=== PATIENT | female | born 1945 | race Caucasian/White ===

== ENCOUNTER → 2016-08-09 | Outpatient (CLI) | payer MEDICARE ==
[2016-08-09 14:02] LABS: EKG EKG PERFORMED
[2016-08-09 14:28] LABS: INR 1.1 (<1.1); Partial Thromboplastin Time 25.6 sec (22.0-30.0); Prothrombin Time 11.2 sec (9.0-12.0)
[2016-08-09 14:30] LABS: Basophils % (A) 1 %; CH 31.9; CHCM 32.9; Eosinophils # (A) 0.1 k/uL (0-0.7); Eosinophils % (A) 1 %; HCT 45.2 % (34.0-46.0); HDW 2.57; HGB 14.8 gm/dL (11.4-16.0); Luc # (Auto) 0.11; Luc % (Auto) 3; Lymphocytes # (A) 1.3 k/uL (1.0-4.8); Lymphocytes % (A) 31 %; MCH 31.8 pg (25.0-35.0); MCHC 32.7 g/dL (31.0-37.0); MCV 97.4 fL (80.0-100.0); Mean Platelet Volume 8.3; Monocytes # (A) 0.3 k/uL (0-1.0); Monocytes % (A) 6 %; Neutrophils # (A) 2.4 k/uL (1.3-7.7); Neutrophils % (A) 58 %; RBC 4.64 m/uL (3.80-5.40); RDW 12.4 % (11.5-15.5); WBC 4.1 k/uL (3.8-10.6); WBC (Perox) 4.11
[2016-08-09 14:43] LABS: Anion Gap 12 mmol/L; Carbon Dioxide 27 mmol/L (22-30); Chloride 103 mmol/L (98-107); Potassium 4.6 mmol/L (3.5-5.1); Sodium 142 mmol/L (137-145)
== END ==
LOC: LABPAT 13:51
PROVIDERS: ATTEND Orthopaedic Surgery
DX: Z01.810 Encounter for preprocedural cardiovascular examination (principal); Z01.812 Encounter for preprocedural laboratory examination; M17.12 Unilateral primary osteoarthritis, left knee; Z51.81 Encounter for therapeutic drug level monitoring; Z79.01 Long term (current) use of anticoagulants
CPT/HCPCS: 36415; 80051; 85025; 85610; 85730; 87070; 93005

== ENCOUNTER 2016-08-21 08:02 | Inpatient (IN) | payer MEDICARE ==
[2016-08-14 11:32] VITALS: BMI 42.4
--- NOTE | 2016-08-20 17:09 | HP ---
DATE OF ADMISSION: Dolores is a 71-year-old patient seen with symptomatic left knee osteoarthritis. After having treatment options discussed, she elected to proceed with left total knee arthroplasty. Consent was obtained. Medical clearance was provided by Dr. Harris. Past medical history is cardiovascular disease, osteoarthritis. Past surgical history is lumbar laminectomy, hysterectomy, foot surgery. Daily medications: 1. Mobic. 2. Pollock. 3. Requip. ALLERGIES: None reported. SOCIAL HISTORY: Patient denies tobacco use. Physical evaluation of the left knee: Range of motion is -6 to 90 degrees. There is a mild intra-articular effusion. Tenderness along the medial and lateral joint lines. Positive medial Beth's. There is crepitus of the patellofemoral joint, range of motion as well as medial and lateral joint line. Crepitus with range of motion, positive patellofemoral compression sign. Ligaments stable. Hip rotation without pain. Distal neurovascular exam is intact. Left knee radiographs reveal severe tricompartmental osteoarthritis. IMPRESSION: Left knee osteoarthritis. PLAN: Left total knee arthroplasty.
[~2016-08-21 08:02] MED LIST: ACETAMINOPHEN TAB 500 MG TAB PO ONE; DEXAMETHASONE SOD PHOSPHATE 10 MG/ML 1 ML VIAL IV ONE; HYDROmorphone 1 MG/ML 1 ML SYRINGE IVP PRN; MELOXICAM 7.5 MG TAB PO ONE; MIDAZOLAM 2 MG/2 ML VIAL IV PRN; ONDANSETRON 4 MG/2 ML VIAL IVP ONE; TRANEXAMIC ACID 1,000 MG in SODIUM CHLORIDE 0.9% 100 ML IVPB ONE; ceFAZolin 2 GM in SODIUM CHLORIDE 0.9% 100 ML IVPB ONE
[2016-08-21] MEDS: LACTATED RINGERS 1,000 ML IV SCH (11:50)
[2016-08-21] MEDS ORDERED: SODIUM CHLORIDE 0.9% 100 ML BAG ONE (13:10)
[2016-08-21] MEDS ORDERED: TRANEXAMIC ACID 1,000 MG/10 ML VIAL ONE (13:10)
[2016-08-21] MEDS ORDERED: LIDOCAINE 1% INJ 10MG/ML (20 ML MDV) ONE (13:10)
[2016-08-21] MEDS ORDERED: MIDAZOLAM 2 MG/2 ML VIAL ONE (13:10)
[2016-08-21] MEDS ORDERED: fentaNYL (PF) 50 MCG/ML 2 ML AMP ONE (13:10)
[2016-08-21] MEDS ORDERED: PROPOFOL 10 MG/ML 20 ML VIAL IV ONE ×2 (13:10)
[2016-08-21] MEDS ORDERED: ceFAZolin 3,000 MG in SODIUM CHLORIDE 0.9% IRRIGATIO 3,000 ML IRRIGATION ONE (13:25)
[2016-08-21] MEDS: ROPIVACAINE 246.25 MG, EPINEPHrine 0.5 MG, KETOROLAC 30 MG, cloNIDine HCL/PF 80 MCG, WA... MISCELLANE ONE ×10 (13:55→14:55)
[2016-08-21] MEDS ORDERED: LACTATED RINGERS 1,000 ML IV ONE (15:40)
[2016-08-21] MEDS ORDERED: NALOXONE 0.4 MG/ML 1 ML VIAL IV PRN (15:45)
[2016-08-21] MEDS ORDERED: HYDROmorphone 1 MG/ML 1 ML SYRINGE IVP PRN ×3 (15:45)
[2016-08-21] MEDS ORDERED: ONDANSETRON 4 MG/2 ML VIAL IVP PRN (15:45)
[2016-08-21] MEDS ORDERED: HYDROcodone/APAP 7.5-325MG 1 EACH TAB PO PRN (15:45)
--- NOTE | 2016-08-21 15:45 | P.OP ---
Date of Procedure: 08/21/16 Preoperative Diagnosis: Left knee osteoarthritis Postoperative Diagnosis: Left knee osteoarthritis Procedure(s) Performed: Left total knee arthroplasty Implants: 1. Michaela persona size 8 left narrow cemented cruciate retaining femoral component 2. Michaela persona size E left cemented tibial tray 3. Michaela persona 10 mm medial congruent polyethylene tibial insert 4. Michaela persona 32 mm all polyethylene cemented patella Anesthesia: regional (Adductor canal block), local, spinal Surgeon: Ricardo Ivy Survey Field Technician #1: Hipolito Babcock Estimated Blood Loss (ml): 50 Pathology: other (Bone) Condition: stable Disposition: PACU Indications for Procedure: 71-year-old patient seen with symptomatic left knee osteoarthritis. After having treatment options discussed, she elected to proceed with left total knee arthroplasty. Operative Findings: See description of procedure Description of Procedure: Patient was taken to the operative suite after having undergone an adductor canal block by the department of anesthesia. Patient underwent a spinal anesthetic by the department of anesthesia. Patient was given preoperative IV intake antibiotics and TXA. A well-padded tourniquet was placed about the [] lower extremity. The lower extremity was then prepped and draped in the normal sterile orthopedic fashion. A standard anterior incision was made sharply through skin. Dissection was taken down through the subcutaneous soft tissues down to the extensor mechanism. A medial arthrotomy was performed, patella was everted and knee was flexed. Hemostasis was achieved via electrocautery. There was advanced osteoarthritis noted. A proximal tibial cutting guide was positioned. Proximal tibial cut was made. A distal intramedullary femoral cutting guide was positioned, distal femoral cut made. We had some bleeding from the bone at this point insufflated the tourniquet to 350. We placed the appropriate sizing guide and selected the appropriate size. A distal 4-in-1 femoral cutting block was positioned, distal femoral cuts were made. We now placed a trial femoral component into position, along with an appropriate size tibial tray and insert. We now took the knee through range of motion and had full extension good flexion and good overall soft tissue balance noted. The patella was everted and a flush cut made with patellar quad tendon. We templated the patella, appropriate drill holes were made. An appropriate trial patella was positioned, knee was taken through full range of motion with the patella tracking very nicely. The trial patella was removed. Drill holes were made through the femoral component. All trial components were removed after marking off the appropriate rotation of the tibia. Retractors were now positioned along the proximal tibia. We did note that the lateral tibial plateau was somewhat osteoporotic but I did feel that it could support the tibial component. An appropriate keel punch was made with the appropriate size tibial guide. At this point appropriate size implants were chosen and opened. The joint was irrigated copiously with pulse lavage mechanical irrigation. The deep soft tissues were infiltrated local analgesic. We mixed antibiotic methylmethacrylate. Once the methyl methacrylate was ready, the tibial component was cemented into place removing any excess methylmethacrylate. The femoral component was cemented into place removing the removing any excess methylmethacrylate. We then inserted the appropriate size polyethylene tibial insert. We made sure that it was locked into position. We took the knee into full extension, and then back in a flexion making sure we had removed any excess methylmethacrylate. The patellar component was then cemented down and secured with clamp. Excess methylmethacrylate removed. We kept the knee in full extension, patellar clamp in position until methylmethacrylate had hardened. The superficial soft tissues were infiltrated local analgesia. Once it had hardened the patellar clamp was removed. The knee was taken through full range of motion. The patella tracked nicely. There was good soft tissue balancing. The tourniquet was now released. Additional hemostasis was achieved via electrocautery. A second gram of TXA was given. Wound was irrigated with pulse lavage mechanical irrigation. The extensor mechanism was repaired with Vicryl. We checked the repair with range of motion and it was stable. The subcutaneous soft tissues were repaired with Vicryl in layers. The skin was approximated with pernio/Dermabond. Sterile dressings were applied followed by loose web roll and Jitendra bandage. The patient was transferred to a bed, and taken to recovery in stable and satisfactory condition. Juarez LEON assisted with the procedure.
[2016-08-21] MEDS ORDERED: ROPIVACAINE 1,100 MG, SODIUM CHLORIDE 0.9% 330 ML MISCELLANE PRN ×2 (16:08)
--- NOTE | 2016-08-21 16:35 | XR ---
EXAMINATION TYPE: XR knee limited LT DATE OF EXAM: 08/21/2016 4:26 PM COMPARISON: NONE HISTORY: Knee replacement TECHNIQUE: 2 view left knee FINDINGS: Tibial and femoral components of in place. A medial femoral condylar fracture is not exclu ded no additional areas suspicious for fracture is evident. Postsurgical changes are present which cr eates artifact which may simulate a fracture. IMPRESSION: 1. Medial femoral condylar fracture is not excluded. This potentially could be artifact from postsur gical change. 2. Placement of the tibial femoral components for knee prosthesis.
[2016-08-21] MEDS: HYDROcodone/APAP 7.5-325MG 1 EACH TAB PO PRN (17:13)
[2016-08-21] MEDS: traMADol 50 MG TAB PO SCH (20:13)
[2016-08-21] MEDS: SENNOSIDES-DOCUSATE SODIUM 1 EACH TAB PO SCH (20:15)
[2016-08-21] MEDS: ENOXAPARIN 30 MG/0.3 ML SYRINGE SQ SCH (20:15)
[2016-08-21] MEDS: ceFAZolin 2 GM in SODIUM CHLORIDE 0.9% 100 ML IVPB SCH (20:39)
[2016-08-22] MEDS: HYDROcodone/APAP 7.5-325MG 1 EACH TAB PO PRN ×4 (00:22→23:06)
[2016-08-22] MEDS: traMADol 50 MG TAB PO SCH ×5 (00:57→21:51)
[2016-08-22] MEDS: ceFAZolin 2 GM in SODIUM CHLORIDE 0.9% 100 ML IVPB SCH (05:35)
[2016-08-22] MEDS: LACTATED RINGERS 1,000 ML IV SCH ×4 (07:05→21:38)
[2016-08-22] MEDS: ENOXAPARIN 30 MG/0.3 ML SYRINGE SQ SCH ×2 (07:36→21:51)
[2016-08-22] MEDS: MELOXICAM 7.5 MG TAB PO SCH (07:36)
[2016-08-22] MEDS: FAMOTIDINE 20 MG TAB PO SCH (07:36)
[2016-08-22 08:19] LABS: Basophils % (A) 0 %; CH 31.6; CHCM 32.8; Eosinophils % (A) 0 %; HCT 34.9 % (34.0-46.0); HDW 2.63; HGB 11.9 gm/dL (11.4-16.0); Luc % (Auto) 1; Lymphocytes # (A) 0.8 k/uL (1.0-4.8); Lymphocytes % (A) 9 %; MCH 32.9 pg (25.0-35.0); MCV 96.8 fL (80.0-100.0); Mean Platelet Volume 8.5; Monocytes # (A) 0.3 k/uL (0-1.0); Monocytes % (A) 4 %; Neutrophils # (A) 7.8 k/uL (1.3-7.7); Neutrophils % (A) 87 %; RBC 3.61 m/uL (3.80-5.40); RDW 12.4 % (11.5-15.5); WBC (Perox) 9.61
[2016-08-22] MEDS: hydrOXYzine PAMOATE 25 MG CAP PO PRN ×2 (09:09→15:01)
--- NOTE | 2016-08-22 10:05 | CONS ---
DATE OF CONSULTATION: 08/21/2016 REASON FOR CONSULTATION: Medical management requested by Dr. Ivy. CONSULTATION: This is a pleasant 71-year-old patient of Dr. Harris who has undergone a left total knee arthroplasty. Postprocedure patient is lying in bed not in distress. No nausea or vomiting, tolerated supper. Pain is controlled. The patient's chronic stable medical conditions include mitral valve prolapse, osteoarthritis including the hands and the lower back, restless leg syndrome, chronic constipation. Denies any cardiac history. REVIEW OF SYSTEMS: CONSTITUTIONAL: None. HEENT: None. RESPIRATORY: None. CARDIOVASCULAR: None. GASTROINTESTINAL: Chronic constipation. GENITOURINARY: Urinary stress incontinence. DERMATOLOGICAL: None. HEMATOLOGICAL: None. LYMPHATIC: None. PSYCHIATRY: None. NEUROLOGICAL: Restless leg syndrome. PAST MEDICAL HISTORY: Mitral prolapse, osteoarthritis, restless leg syndrome, urinary stress incontinence, constipation. PAST SURGICAL HISTORY: Back surgery, hysterectomy, lower back fusion, ( ) surgery. SOCIAL HISTORY: Patient is a , lives by herself, does not smoke or drink alcohol. FAMILY HISTORY: Reviewed. Noncontributory to presentation. HOME MEDICATIONS: 1. Women's multivitamin 1 tablet p.o. daily. 2. Fiber Gummies 2 capsules p.o. t.i.d. p.r.n. 3. Requip 1 mg p.o. q.h.s. 4. Mobic 7.5 p.o. b.i.d. 5. [place] 5, 1 tablet q.4. ALLERGIES: None. On examination, temperature 96.8, pulse 97 respiration 16, blood pressure 109/53, pulse ox 97% on room air. GENERAL APPEARANCE: Well built, BMI of 42.4. Sitting up in bed, comfortable. EYES: Pupils palpated normal. HEENT: External appearance of nose and ears normal. Oral cavity normal. NECK: JVD not raised. Mass not palpable. RESPIRATORY: Effort normal. Lungs are clear. CARDIOVASCULAR: First and second sounds normal. No edema. ABDOMEN: Soft, nontender. Liver and spleen not palpable. LYMPHATIC: No lymph nodes palpable in the neck or axillae. PSYCHIATRY: Alert and oriented x3. Mood and affect normal. NEUROLOGICAL: Pupils equal. Cranial nerves grossly intact. Power and sensation grossly intact. EXTREMITIES: Left knee in a dressing, drain in place. INVESTIGATIONS: None. ASSESSMENT: 1. Left total knee arthroplasty for osteoarthritis. 2. Primary osteoarthritis especially of the hands and back. 3. Chronic mitral valve prolapse. 4. Chronic restless leg syndrome. 5. Chronic urinary stress incontinence. 6. Chronic constipation, opiate medication-induced. 7. Morbid obesity, body mass index 42.4. PLAN: Patient's Requip should be resumed. Patient getting Lovenox for DVT prophylaxis. Pain control is in place. Patient should continue to do laxatives. Patient should follow up with a dietitian for weight loss measures. Follow-up follow up with family doctor. Thank you, Dr. Ivy.
--- NOTE | 2016-08-22 10:48 | P.PN ---
Progress Note - Text Postoperative day # 1 status post total knee arthroplasty, on adductor canal, perineural catheter placed for postoperative analgesia. Ropivacaine 0.2% 8 mL per hour through ON-Q pump continuous infusion. Pain is well controlled. On visual analog scale 3/10 Patient is taking PRN oral pain medications. Catheter site: Looks Ok. There is no erythema or tenderness. Continue with the current pain management plan and will follow.
[2016-08-22] MEDS: MULTIVITAMINS, THERA 1 EACH TAB PO SCH (11:18)
[2016-08-22] MEDS: SENNOSIDES-DOCUSATE SODIUM 1 EACH TAB PO SCH (21:53)
--- NOTE | 2016-08-22 22:00 | PN ---
DATE OF SERVICE: 08/22/2016 PRESENTING COMPLAINT: Left knee surgery. INTERVAL HISTORY: Patient is status post left knee surgery, sitting up on a chair. Did not sleep too well last night. Did tolerate her breakfast. No nausea or vomiting. No dizziness. No chest pain. Review of systems done for constitutional, cardiovascular, GI, pulmonary, musculoskeletal; relevant findings as above. Current medications are reviewed. On examination, temperature 98.2, pulse 57, respiration 16, blood pressure 147/71, pulse ox 95% on room air. GENERAL APPEARANCE: Sitting up on a chair, comfortable. EYES: Pupils equal. Conjunctivae normal. NECK: JVD not raised. Mass not palpable. RESPIRATORY: Effort normal. Lungs are clear. CARDIOVASCULAR: First and second sounds normal. No edema. ABDOMEN: Soft, nontender. Liver and spleen not palpable. PSYCHIATRY: Alert and oriented x3. Mood and affect normal. INVESTIGATIONS: Hemoglobin 11.9. White count 9.0. ASSESSMENT: 1. Left total knee arthroplasty for osteoarthritis. 2. Primary osteoarthritis, especially of the hands and back. 3. Chronic mitral valve prolapse. 4. Chronic restless leg syndrome. 5. Chronic urinary stress incontinence. 6. Chronic constipation, induced by opiate medication. 7. Morbid obesity; body mass index of 42.4. PLAN: Continue current medication and treatment plan. Care was discussed with the patient.
[2016-08-23] MEDS: HYDROcodone/APAP 7.5-325MG 1 EACH TAB PO PRN ×3 (04:55→15:05)
[2016-08-23] MEDS: LACTATED RINGERS 1,000 ML IV SCH ×3 (06:52→10:19)
[2016-08-23] MEDS: hydrOXYzine PAMOATE 25 MG CAP PO PRN ×2 (07:36→15:05)
[2016-08-23] MEDS: MELOXICAM 7.5 MG TAB PO SCH (07:36)
[2016-08-23] MEDS: traMADol 50 MG TAB PO SCH ×4 (07:36→22:01)
[2016-08-23] MEDS: ENOXAPARIN 30 MG/0.3 ML SYRINGE SQ SCH ×2 (07:36→22:32)
[2016-08-23] MEDS: FAMOTIDINE 20 MG TAB PO SCH (07:37)
[2016-08-23 08:39] VITALS: RESP 16
[2016-08-23] MEDS: MULTIVITAMINS, THERA 1 EACH TAB PO SCH (10:04)
--- NOTE | 2016-08-23 11:34 | P.PN ---
Subjective Principal diagnosis: Status post left total knee arthroplasty Patient is seen today resting in her hospital bed. Slight increase in pain today noted in the knee. She denies any headaches, lightheadedness, chest pain. Objective - Vital Signs Vital signs: Vital Signs Temp 97.9 F 08/23/16 08:00 Pulse 69 08/23/16 08:00 Resp 16 08/23/16 08:00 BP 141/67 08/23/16 08:00 Pulse Ox 98 08/23/16 08:00 Intake & Output 08/22/16 08/23/16 08/23/16 18:59 06:59 18:59 Intake Total 500 Output Total 300 500 Balance 200 -500 Weight 115.666 kg 115.666 kg Intake: IV 500 Lactated Ringers 1,000 ml 500 @ 80 mls/hr IV .[id number] [facility] Rx#:[id number] Output: Urine 300 500 Uretheral (Garzon) 300 Other: Voiding Method Indwelling Catheter Bedside Commode Bedpan - Exam Left lower extremity: Incision is clean, dry and intact. Minimal ecchymosis noted on the medial and lateral aspects of the incision. Calf soft, no tenderness with palpation. Plantar flexion, dorsiflexion, EHL, FHL are intact. Sensory exam to light touch at the extremities intact, cap refills less than 2 seconds. - Labs CBC & Chem 7: 08/22/16 07:16 Assessment and Plan Plan: Assessment: 1. Postop day #2 status post left total knee arthroplasty Plan: 1. Pain control, continue supportive oral medication 2. Continue therapy and weightbearing, toe touch weightbearing at this time 3. GI and DVT prophylaxis, continue Lovenox 4. Daily dressing changes/ice and elevate 5. Medical recommendations 6. Discharge planning: Patient will be discharged likely to rehab tomorrow Time with Patient: Less than 30
--- NOTE | 2016-08-23 11:36 | P.DS ---
Providers Date of admission: 08/21/16 10:17 Expected date of discharge: 08/24/16 Attending physician: Ricardo Ivy Consults: 08/21/16 15:45 Consult Physician Routine Consulting Provider: Tej Child Consult Reason/Comments: Medical management Do you want consulting provider notified?: Yes Primary care physician: [facility] Course: Date of admission: 08/21/2016 Date of discharge: 08/24/2016 Admission diagnosis: Status post left total knee arthroplasty Discharge diagnosis: Same Attending physician: Dr. Ivy Surgical procedures: Left total knee arthroplasty Brief history: Patient is a 71-year-old female with a history of progressive primary left knee osteoarthritis. At this point patient has failed conservative treatment measures and has opted to proceed with a elective left total knee arthroplasty. Hospital course: Details of patient's surgery can be found in operative report. Patient tolerated the procedure well and was subsequently transported to orthopedic floor. Patient's orthopeidc and medical care was provided daily. Patient had daily laboratory tests performed for evaluation of overall blood counts. Patient had daily physical therapy to include strengthening range of motion as well as education with walker ambulation. Patient had daily CPM usage as part of their physical therapy program. Patient was treated with Lovenox for their postoperative DVT prophylaxis during their inpatient stay. Patient was noted to have a relatively uneventful postoperative course. Patient reported satisfactory pain control with oral pain medications by postoperative day 1. Patient showed satisfactory progress with physical therapy. Patient moved steadily through the program and had no difficulty meeting the goals by postoperative day 3. Given patient's otherwise satisfactory course and having met physical therapy goals, plan is to discharge patient rehab on postoperative day 3. Discharge condition/disposition: Patient will be discharged to rehab in stable condition. Discharge medications: Instructions are given on resumption of patient's normal daily medications per primary care recommendation, in addition patient will be prescribed [place] 10 mg/325 mg, tramadol 50 mg, Flexeril 10 mg, Colace 100 mg, Pepcid 20 mg, aspirin 325 mg. Discharge instructions: 1. Wound care and infection precautions, keep incision dry and covered while showering, no lotions, creams, moisturizers. No soaking, tubs, pools, hottubs. Do not scrub over the incision. 2. Weight-bear as tolerated with walker / cane until follow-up. 3. Ice and elevate when necessary. Do not exceed 20 minutes per hour with ice pack. 4. Utilize compression sleeve until seen at first follow up appointment. 5. Visiting nursing care. 6. Home physical therapy including home CPM. 7. Pain meds and anticoagulants per prescription. 8. Pain medication has potential to cause constipation. Increase oral fluid and fiber intake. Contact primary care provider if you have not had a bowel movement within 48 hours after discharge 9. No anti-inflammatory medication until discussed at first post operative visit, this including Motrin, Aleve, Mobic, Diclofenac. 10. Follow up in office at 2 weeks postop with Juarez Babcock PA-C 11. Follow up with your primary care doctor 7-10 days after discharge. 12. Contact [facility] with any questions, . Procedures: Left total knee arthroplasty Patient Condition at Discharge: Good Plan - Discharge Summary New Discharge Prescriptions: Aspirin 325 mg PO BID #60 tab Cyclobenzaprine [Flexeril] 10 mg PO HS #30 tab Docusate [Colace] 100 mg PO DAILY #30 capsule Famotidine [Pepcid] 20 mg PO DAILY #30 tablet Hydrocodone/Acetaminophen [[place] 10-325] 1 each PO Q6H PRN #60 tab PRN Reason: Pain traMADol HCl [Ultram] 50 mg PO Q6H PRN #40 tab PRN Reason: Pain Discharge Medication List Meloxicam [Mobic] 7.5 mg PO BID 08/14/16 [History] Multivit with Calcium,Iron,Min [Women's Multivitamin] 1 tab PO DAILY 08/14/16 [ History] rOPINIRole HCL [Requip] 1 mg PO HS 08/14/16 [History] Inulin/Chromium Picolinate [Fiber Gummies Chew] 2 cap PO TID PRN 08/21/16 [ History] Aspirin 325 mg PO BID #60 tab 08/24/16 [Rx] Cyclobenzaprine [Flexeril] 10 mg PO HS #30 tab 08/24/16 [Rx] Docusate [Colace] 100 mg PO DAILY #30 capsule 08/24/16 [Rx] Famotidine [Pepcid] 20 mg PO DAILY #30 tablet 08/24/16 [Rx] Hydrocodone/Acetaminophen [[place] 10-325] 1 each PO Q6H PRN #60 tab 08/24/16 [Rx] traMADol HCl [Ultram] 50 mg PO Q6H PRN #40 tab 08/24/16 [Rx] Follow up Appointment(s)/Referral(s): Edenilson Paulson, [NON-STAFF] - As Needed Hipolito Babcock PAC [PHYSICIAN RETAIL REPRESENTATIVE] - 2 Weeks Activity/Diet/Wound Care/Special Instructions: Orthopedic Discharge Instructions: 1. Wound care and infection precautions, keep incision dry and covered while showering, no lotions, creams, moisturizers. No soaking, pools, hot tubs. Do not scrub over incision. 2. Weight-bear as tolerated with walker / cane until follow-up. 3. Ice and elevate when necessary. Do not exceed 20 minutes per hour with ice pack. 4. Utilize compression sleeve until seen at first follow up appointment. 5. Visiting nursing care. 6. Home physical therapy including home CPM. 7. Pain meds and anticoagulants per prescription. 8. Pain medication has potential to cause constipation. Increase oral fluid and fiber intake. Contact primary care provider if you have not had a bowel movement within 48 hours after discharge. 9. No anti-inflammatory medication until discussed at first post operative visit, this including Motrin, Aleve, Mobic, Diclofenac. 10. Follow up in office at 2 weeks postop with Juarez Babcock PA-C 11. Follow up with your primary care doctor 7-10 days after discharge. 12. Contact [facility] with any questions, . Discharge Disposition: TRANSFER TO SNF/ECF
--- NOTE | 2016-08-23 14:58 | PN ---
DATE OF SERVICE: 08/22/2016 PRESENTING COMPLAINT: Left knee surgery. INTERVAL HISTORY: The patient is status post left knee surgery, doing better with physical therapy. Some pain is present. No nausea, vomiting, no chest pain, tolerating her meals. Review of systems done for constitutional, cardiovascular, GI, pulmonary, musculoskeletal; relevant findings as above. Current medications are reviewed. On examination, temperature 97.9, pulse 69, respiratory rate 16, blood pressure 114/67, pulse ox 98% on room air. GENERAL APPEARANCE: Sitting up, comfortable. EYES: Pupils equal. Conjunctivae normal. NECK: JVD not raised. Mass not palpable. RESPIRATORY: Effort normal. Lungs are clear. CARDIOVASCULAR: First and second sounds normal. No edema. ABDOMEN: Soft, nontender. Liver and spleen not palpable. PSYCHIATRY: Alert and oriented x3. Mood and affect is normal. INVESTIGATIONS: No blood work from today. ASSESSMENT: 1. Left total knee arthroplasty for osteoarthritis. 2. Primary osteoarthritis especially of the hands and lower back, lumbar. 3. Chronic mitral valve prolapse. 4. Chronic restless leg syndrome. 5. Chronic urinary stress incontinence. 6. Chronic constipation induced, by opiate medications. 7. Morbid obesity, body mass index 42.4. PLAN: Care was discussed with the patient. Continue current medications.
--- NOTE | 2016-08-23 15:09 | XR ---
EXAMINATION TYPE: XR chest 1V DATE OF EXAM: 08/23/2016 3:00 PM COMPARISON: NONE HISTORY: ECF placement TECHNIQUE: Single frontal view of the chest is obtained. FINDINGS: There is no focal air space opacity, pleural effusion, or pneumothorax seen. The cardiac silhouette size is within normal limits. The osseous structures are intact. Linear changes left low er lobe suggestive of scar or atelectasis. Atherosclerotic change aorta. Arthropathy of the shoulders . IMPRESSION: No acute process.
[2016-08-23] MEDS: CYCLOBENZAPRINE 10 MG TAB PO PRN ×2 (17:18→23:49)
[2016-08-23] MEDS: SENNOSIDES-DOCUSATE SODIUM 1 EACH TAB PO SCH (22:03)
[2016-08-24] MEDS: HYDROcodone/APAP 7.5-325MG 1 EACH TAB PO PRN ×2 (01:43→07:28)
[2016-08-24] MEDS: LACTATED RINGERS 1,000 ML IV SCH ×2 (06:14→09:49)
[2016-08-24 07:24] VITALS: BP 145/85; PULSE 87; TEMP 98.4
[2016-08-24 07:24] LABS: Basophils % (A) 0 %; CH 31.3; CHCM 32.4; Eosinophils % (A) 0 %; HCT 35.3 % (34.0-46.0); HDW 2.52; Luc # (Auto) 0.12; Luc % (Auto) 2; Lymphocytes # (A) 1.3 k/uL (1.0-4.8); Lymphocytes % (A) 19 %; MCH 33.2 pg (25.0-35.0); MCHC 34.1 g/dL (31.0-37.0); MCV 97.2 fL (80.0-100.0); Mean Platelet Volume 8.1; Monocytes # (A) 0.3 k/uL (0-1.0); Monocytes % (A) 5 %; Neutrophils % (A) 74 %; RBC 3.63 m/uL (3.80-5.40); RDW 12.6 % (11.5-15.5); WBC 6.8 k/uL (3.8-10.6); WBC (Perox) 6.98
[2016-08-24] MEDS ORDERED: HYDROcodone/APAP 10-325MG 1 EACH TAB PO PRN ×2 (07:40→07:44)
[2016-08-24] MEDS: traMADol 50 MG TAB PO SCH ×2 (08:56→12:44)
[2016-08-24] MEDS: FAMOTIDINE 20 MG TAB PO SCH (08:56)
[2016-08-24] MEDS: MELOXICAM 7.5 MG TAB PO SCH (08:57)
[2016-08-24] MEDS: ENOXAPARIN 30 MG/0.3 ML SYRINGE SQ SCH (08:57)
--- NOTE | 2016-08-24 11:12 | P.PN ---
Subjective Principal diagnosis: Status post left total knee arthroplasty Patient is seen today resting in her hospital bed. She denies any headaches, lightheadedness, chest pain. Objective - Vital Signs Vital signs: Vital Signs Temp 98.4 F 08/24/16 07:23 Pulse 87 08/24/16 07:23 Resp 16 08/24/16 07:23 BP 145/85 08/24/16 07:23 Pulse Ox 97 08/24/16 07:23 Intake & Output 08/23/16 08/24/16 08/24/16 18:59 06:59 18:59 Intake Total 640 200 Balance 640 200 Weight 115.666 kg Intake: Oral 640 200 Other: Voiding Method Bedside Commode Bedpan Bedpan # Voids 1 2 # Bowel Movements 1 - Exam Left lower extremity: Incision is clean, dry and intact. Minimal ecchymosis noted on the medial and lateral aspects of the incision. Calf soft, no tenderness with palpation. Plantar flexion, dorsiflexion, EHL, FHL are intact. Sensory exam to light touch at the extremities intact, cap refills less than 2 seconds. - Labs CBC & Chem 7: 08/24/16 06:58 Labs: Abnormal Lab Results - Last 24 Hours (Table) 08/24/16 Range/Units 06:58 RBC 3.63 L (3.80-5.40) m/uL Assessment and Plan Plan: Assessment: 1. Postop day #3 status post left total knee arthroplasty Plan: 1. Pain control, continue oral medication 2. Continue therapy and weightbearing, toe touch weightbearing at this time 3. GI and DVT prophylaxis, we'll discharge home on aspirin 325 mg twice a day 4. Daily dressing changes/ice and elevate 5. Medical recommendations 6. Discharge planning: Patient will be discharged to rehab today Time with Patient: Less than 30
--- NOTE | 2016-08-24 21:11 | PN ---
DATE OF SERVICE: 08/24/2016 PRESENTING COMPLAINT: Left knee surgery. INTERVAL HISTORY: Patient is status post left knee surgery; seen by me earlier today; doing well. No chest pain or shortness of breath. Did tolerate a diet. Did work with Physical Therapy. Review of systems done for constitutional, cardiovascular, GI, pulmonary, musculoskeletal; relevant findings as above. Current medications are reviewed. On examination, temperature 98.4, pulse 87, respiration 16, blood pressure 145/85, pulse ox 97% on room air. GENERAL APPEARANCE: Sitting up, comfortable. EYES: Pupils equal. Conjunctivae normal. NECK: JVD not raised. Mass not palpable. RESPIRATORY: Effort normal. Lungs are clear. CARDIOVASCULAR: First and second sounds normal. No edema. ABDOMEN: Soft, nontender. Liver and spleen not palpable. PSYCHIATRY: Alert and oriented x3. Mood and affect normal. INVESTIGATIONS: White count 6.8, hemoglobin ( ). ASSESSMENT: 1. Left total knee arthroplasty for osteoarthritis. 2. Primary osteoarthritis, especially of the hands and lumbar region. 3. Chronic mitral valve prolapse. 4. Chronic restless leg syndrome. 5. Chronic urinary stress incontinence. 6. Chronic constipation induced by opiate medication. 7. Morbid obesity; body mass index of 42.4. PLAN: Patient is doing well, stable. Continue current medication and treatment plan and follow.
--- NOTE | 2016-08-24 21:20 | PN ---
DATE OF SERVICE: 08/23/2016 ADDENDUM: CORRECTION: The patient note dictated on 08/23/2016 at 12:50, transcribed on 08/23/2016 at 1456, the correct date of service should read 08/23/2016.
== END 2016-08-24 14:20 | DRG 470 ==
LOC: 2ORMAIN 10:17 → 3SUR 15:39
PROVIDERS: ADMIT Orthopaedic Surgery; ATTEND Orthopaedic Surgery
PROC: 0SRD0J9 Replacement of Left Knee Joint with Synthetic Substitute, Cemented, Open Approach (ICD-10-PCS; principal; 2016-08-21 12:50)
DX: M17.12 Unilateral primary osteoarthritis, left knee (principal); Z68.41 Body mass index [BMI] 40.0-44.9, adult; I34.1 Nonrheumatic mitral (valve) prolapse; E66.01 Morbid (severe) obesity due to excess calories; G25.81 Restless legs syndrome; I25.10 Atherosclerotic heart disease of native coronary artery without angina pectoris; K59.03 Drug induced constipation; T40.2X5A Adverse effect of other opioids, initial encounter; M19.042 Primary osteoarthritis, left hand; M19.041 Primary osteoarthritis, right hand; M47.9 Spondylosis, unspecified; N39.3 Stress incontinence (female) (male); Z79.899 Other long term (current) drug therapy
CPT/HCPCS: 71010; 85025; 88300

== ENCOUNTER 2020-07-25 14:57 | Observation (INO) | payer MEDICARE ==
[2020-07-25] MEDS ORDERED: SODIUM CHLORIDE 0.9% 1,000 ML IV STA (15:19)
[2020-07-25] MEDS ORDERED: MORPHINE SULFATE 4 MG/ML SYRINGE IV STA (15:19)
--- NOTE | 2020-07-25 15:21 | ED ---
General Adult HPI - General Chief complaint: Abdominal Pain Stated complaint: Abd Pain Time Seen by Provider: 07/25/20 14:59 Source: patient Mode of arrival: EMS Limitations: no limitations - History of Present Illness Initial comments: Dictation was produced using [employer] dictation software. please excuse any grammatical, word or spelling errors. This patient was cared for during a federal and state declared state of emergency secondary to Covid 19 Chief Complaint: 75-year-old female past medical history of hysterectomy presents to the emergency department for right lower quadrant abdominal pain History of Present Illness: 75-year-old male presents with right lower quadrant pain 1 day. She states this in the right lower quadrant. Patient says her appendix. She has history of hysterectomy. Patient complains of nausea. D enies any fevers. No other history of abdominal surgery. The ROS documented in this emergency department record has been reviewed and confirmed by me. Those systems with pertinent positive or negative responses have been documented in the HPI. All other systems are other negative and/or noncontributory. PHYSICAL EXAM: General Impression: Alert and oriented x3, acute distress secondary to pain HEENT: Normocephalic atraumatic, extra-ocular movements intact, pupils equal and reactive to light bilaterally, mucous membranes moist. Cardiovascular: Heart regular rate and rhythm Chest: Able to complete full sentences, no retractions, no tachypnea Abdomen: abdomen soft, tenderness to palpation in the right lower quadrant, no rebound tenderness, non-distended, no organomegaly Musculoskeletal: Pulses present and equal in all extremities, no peripheral edema Motor: no focal deficits noted Neurological: CN II-XII grossly intact, no focal motor or sensory deficits noted Skin: Intact with no visualized rashes Psych: Normal affect and mood ED course: 55-year-old female presents with right lower quadrant pain 1 day. Vital signs upon arrival are within acceptable limits. Laboratory evaluation obtained. No leukocytosis. CBC and metabolic panel is unremarkable. Patient reevaluated bedside still having persistent right lower quadrant abdominal pain. Clinically speaking there is some concern that she has an acute appendicitis still despite CT imaging. The CT did not visualize the appendix. Disposition options were discussed with patient she is agreeable to be admitted observation for serial abdominal exams. Patient be admitted to general surgeon Dr. Allen. Who is agreeable with patient admission. EKG interpretation: Ventricular rate 40, says Jon,. Interval to 30, QRS 96, QTC 396. No TN prolongation, no QTC prolongation, no ST or T-wave changes noted. Overall, this EKG is unremarkable - Related Data Home Medications Medication Instructions Recorded Confirmed Meloxicam [Mobic] 7.5 mg PO BID 08/14/16 10/12/16 Multivit with Calcium,Iron,Min 1 tab PO DAILY 08/14/16 10/12/16 [Women's Multivitamin] rOPINIRole HCL [Requip] 1 mg PO HS 08/14/16 10/12/16 Inulin/Chromium Picolinate [Fiber 2 cap PO DAILY 08/21/16 10/12/16 Gummies Chew] HYDROcodone/APAP 5-325MG [[place] 1 tab PO Q4HR PRN 10/12/16 10/12/16 5-325] Lidocaine 5% Oint [Xylocaine 5% 1 applic TOPICAL DAILY PRN 10/12/16 10/12/16 Oint] Menthol [Biofreeze] 1 applic TOPICAL DAILY PRN 10/12/16 10/12/16 Previous Rx's Medication Instructions Recorded Hydrocodone/Acetaminophen [[place] 1 each PO Q4HR PRN #40 tab 10/13/16 5-325] Baclofen [Lioresal] 5 mg PO TID PRN #30 tab 10/14/16 Diclofenac Sodium Gel [Voltaren 4 gm TOPICAL QID tube 10/14/16 Gel] Allergies Allergy/AdvReac Type Severity Reaction Status Date / Time No Known Allergies Allergy Verified 07/25/20 15:09 Review of Systems ROS Statement: Those systems with pertinent positive or pertinent negative responses have been documented in the HPI. ROS Other: All systems not noted in ROS Statement are negative. Past Medical History Past Medical History: Mitral Valve Prolapse (MVP), Osteoarthritis (OA) Additional Past Medical History / Comment(s): DDD, chronic rhinnitis. c-diff 6 or 7 years ago, incont of urine wears a pad. History of Any Multi-Drug Resistant Organisms: None Reported Past Surgical History: Back Surgery, Hysterectomy, Orthopedic Surgery Additional Past Surgical History / Comment(s): back fusion, heel spur, 4--17 lt total knee arthroplasty Past Anesthesia/Blood Transfusion Reactions: No Reported Reaction Additional Past Anesthesia/Blood Transfusion Reaction / Comment(s): after knee sx done (part of her aa was a spinal) and for few days afer sx c/o muscle spasms/cramps in legs. hx of clausterphobia Past Psychological History: Depression Smoking Status: Former smoker Past Alcohol Use History: None Reported Past Drug Use History: None Reported - Past Family History Mother Family Medical History: COPD, Hypertension Father Family Medical History: Osteoarthritis (OA) General Exam Limitations: no limitations Course Vital Signs 07/25/20 07/25/20 15:04 17:09 Temperature 98.5 F Pulse Rate 51 L 59 L Respiratory 18 18 Rate Blood Pressure 140/56 140/60 O2 Sat by Pulse 96 95 Oximetry Medical Decision Making - Lab Data Result diagrams: 07/25/20 15:20 07/25/20 15:20 Lab Results 07/25/20 07/25/20 Range/Units 15:20 15:20 WBC 5.2 (3.8-10.6) k/uL RBC 4.31 (3.80-5.40) m/uL Hgb 13.7 (11.4-16.0) gm/dL Hct 42.0 (34.0-46.0) % MCV 97.5 (80.0-100.0) fL MCH 31.7 (25.0-35.0) pg MCHC 32.5 (31.0-37.0) g/dL RDW 12.6 (11.5-15.5) % Plt Count 249 (150-450) k/uL MPV 8.5 Neutrophils % 81 % Lymphocytes % 15 % Monocytes % 2 % Eosinophils % 0 % Basophils % 1 % Neutrophils # 4.2 (1.3-7.7) k/uL Lymphocytes # 0.8 L (1.0-4.8) k/uL Monocytes # 0.1 (0-1.0) k/uL Eosinophils # 0.0 (0-0.7) k/uL Basophils # 0.0 (0-0.2) k/uL Sodium 140 (137-145) mmol/L Potassium 4.2 (3.5-5.1) mmol/L Chloride 110 H (98-107) mmol/L Carbon Dioxide 23 (22-30) mmol/L Anion Gap 7 mmol/L BUN 20 H (7-17) mg/dL Creatinine 0.72 (0.52-1.04) mg/dL Est GFR (CKD-EPI)AfAm >90 (>60 ml/min/1.73 sqM) Est GFR (CKD-EPI)NonAf 83 (>60 ml/min/1.73 sqM) Glucose 121 H (74-99) mg/dL Calcium 9.2 (8.4-10.2) mg/dL Total Bilirubin 0.6 (0.2-1.3) mg/dL AST 24 (14-36) U/L ALT 13 (4-34) U/L Alkaline Phosphatase 86 (38-126) U/L Total Protein 6.9 (6.3-8.2) g/dL Albumin 4.1 (3.5-5.0) g/dL Disposition Clinical Impression: Abdominal pain Disposition: ADMITTED IP TO THIS HOSP Condition: Fair Referrals: Chau Mitchell MD [Primary Care Provider] - 1-2 days Decision Time: 18:02
[2020-07-25 15:32] LABS: Basophils % (A) 1 %; Eosinophils % (A) 0 %; HGB 13.7 gm/dL (11.4-16.0); Lymphocytes # (A) 0.8 k/uL (1.0-4.8); Lymphocytes % (A) 15 %; MCH 31.7 pg (25.0-35.0); MCHC 32.5 g/dL (31.0-37.0); MCV 97.5 fL (80.0-100.0); Mean Platelet Volume 8.5; Monocytes # (A) 0.1 k/uL (0-1.0); Monocytes % (A) 2 %; Neutrophils # (A) 4.2 k/uL (1.3-7.7); Neutrophils % (A) 81 %; Platelet Count 249 k/uL (150-450); RBC 4.31 m/uL (3.80-5.40); RDW 12.6 % (11.5-15.5); WBC 5.2 k/uL (3.8-10.6)
[2020-07-25 16:18] LABS: ALT 13 U/L (4-34); AST 24 U/L (14-36); African American GFR (CKD) >90 (>60 ml/min/1.73 sqM); Albumin 4.1 g/dL (3.5-5.0); Alkaline Phosphatase 86 U/L (38-126); Anion Gap 7 mmol/L; Blood Urea Nitrogen 20 mg/dL (7-17); Calcium 9.2 mg/dL (8.4-10.2); Carbon Dioxide 23 mmol/L (22-30); Chloride 110 mmol/L (98-107); Glucose 121 mg/dL (74-99); Non-African American GFR(CKD) 83 (>60 ml/min/1.73 sqM); Potassium 4.2 mmol/L (3.5-5.1); Sodium 140 mmol/L (137-145); Total Bilirubin 0.6 mg/dL (0.2-1.3); Total Protein 6.9 g/dL (6.3-8.2)
--- NOTE | 2020-07-25 16:52 | CT ---
EXAMINATION TYPE: CT abdomen pelvis w con DATE OF EXAM: 07/25/2020 COMPARISON: None HISTORY: RLQ pain CT DLP: 2117.8 mGycm Automated exposure control for dose reduction was used. CONTRAST: Performed with IV Contrast, patient injected with 100 mL of Isovue 300. Images obtained from the diaphragm to the floor the pelvis with IV contrast. FINDINGS: There is some mild fibrotic change in subsegmental atelectasis at the lung bases. Heart appears sligh tly enlarged. There is elevated right diaphragm. Liver spleen stomach pancreas gallbladder appear intact. Common bile duct is large and measures 15 mm . There is minimal ectasia of the intrahepatic bile ducts. There is no adrenal mass. Kidneys show satisfactory contrast opacification. There is no hydronephrosi s. Delayed images show normal renal excretion. The ureters are not dilated. Bladder distends smoothly . There is no inguinal hernia. There is no free fluid in the pelvis. There is no pelvic mass. There i s hysterectomy. There is multilevel lumbar spondylotic changes with posterior fusion surgery in the m id lumbar spine. The bony pelvis is intact. The hip joints are intact. There is thoracolumbar levosco liosis. There is no significant lumbar compression deformity. There is no mesenteric edema. There is no ascites or free air. There is no bowel obstruction. There i s no sign of thickened appendix. There is 1.5 cm umbilical hernia contains fat. IMPRESSION: Mild enlargement of the biliary tree. This could relate to gallbladder dysfunction. No obstructing le tej seen. MRCP or ultrasound might be helpful for further evaluation if clinically indicated. Cardiomegaly. Basilar pulmonary atelectasis.
--- NOTE | 2020-07-25 17:42 | US ---
EXAMINATION TYPE: US gallbladder DATE OF EXAM: 07/25/2020 COMPARISON: CT CLINICAL HISTORY: gall bladder dysfunction. Pain x 1 day. EXAM MEASUREMENTS: Liver Length: 14.6 cm CBD: Not seen. Right Kidney: 9.9 x 5.6 x 4.9 cm Very limited exam due to gas and large patient body habitus. Pancreas: Not seen. Liver: Limited. Appears coarse. Gallbladder: Not seen. Evidence for sonographic Kee's sign: No. CBD: Not seen. Right Kidney: Limited visibility. IMPRESSION: Limited exam fails to show the gallbladder. The bile ducts do not appear dilated. There is no sign of ascites. Right kidney shows no evidence of mass or obstruction.
[2020-07-25] MEDS ORDERED: MORPHINE SULFATE 4 MG/ML SYRINGE IV PRN (17:59)
[2020-07-25] MEDS ORDERED: NALOXONE 0.4 MG/ML 1 ML VIAL IV PRN (17:59)
[2020-07-25] MEDS ORDERED: ACETAMINOPHEN TAB 325 MG TAB PO PRN (17:59)
[2020-07-25] MEDS: SODIUM CHLORIDE 0.9% 1,000 ML IV SCH (23:42)
[2020-07-25] MEDS: HYDROcodone/APAP 10-325MG 1 EACH TAB PO SCH (23:47)
[2020-07-26] MEDS: HYDROcodone/APAP 10-325MG 1 EACH TAB PO SCH ×8 (02:29→23:59)
[2020-07-26] MEDS: SODIUM CHLORIDE 0.9% 1,000 ML IV SCH ×2 (04:10→15:41)
[2020-07-26] MEDS: MELOXICAM 7.5 MG TAB PO SCH (07:22)
[2020-07-26] MEDS: METOPROLOL TARTRATE 25 MG TAB PO SCH (07:22)
[2020-07-26] MEDS: CITALOPRAM HYDROBROMIDE 20 MG TAB PO SCH (07:23)
--- NOTE | 2020-07-26 09:31 | P.GSHP ---
History of Present Illness H&P Date: 07/26/20 CHIEF COMPLAINT: Right lower quadrant abdominal pain HISTORY OF PRESENT ILLNESS: This is a 75-year-old female with a known history of C. diff colitis, hysterectomy, mitral valve prolapse, osteoarthritis and degenerative disc disease. She presents to the emergency room with complaints of right lower quadrant abdominal pain 1 day. She's also been having nausea, fever, chills or sweats. She had computed tomography scan of the abdomen and pelvis had showed mild enlargement of the biliary tree. This could relate to gallbladder dysfunction. No obstructing lesions seen. Gallbladder ultrasound limited exam failed to show the gallbladder. The bile duct does not appear dilated. Patient is still complaining of right lower quadrant pain. HIDA scan has been ordered. She is scheduled for a laparoscopic appendectomy today. PAST MEDICAL HISTORY: See list. PAST SURGICAL HISTORY: See list. MEDICATIONS: See list. ALLERGIES: See list. SOCIAL HISTORY: No illicit drug use. REVIEW OF SYSTEMS: CONSTITUTIONAL: Denies fever or chills. HEENT: Denies blurred vision, vision changes, or eye pain. Denies hemoptysis CARDIOVASCULAR: Denies chest pain or pressure. RESPIRATORY: No shortness of breath. GASTROINTESTINAL: See HPI for pertinent findings HEMATOLOGIC: Denies bleeding disorders. GENITOURINARY: Denies any blood in urine or increased urinary frequency. SKIN: Denies pruitis. Denies rash. PHYSICAL EXAM: VITAL SIGNS: Reviewed GENERAL: Well-developed in no acute distress. HEENT: No sclera icterus. Extraocular movements grossly intact. Moist buccal mucosa. Head is atraumatic, normocephalic. No nasal drainage. ABDOMEN: Soft. Nondistended. Right lower quadrant tenderness with palpation NEUROLOGIC: Alert and oriented. Cranial nerves II through XII grossly intact. LABORATORY DATA: WBC 5.2 hemoglobin 13.7 creatinine 0.72 BUN 20 LFTs are normal IMAGING: computed tomography scan of the abdomen and pelvis had showed mild enlargement of the biliary tree. This could relate to gallbladder dysfunction. No obstructing lesions seen. Gallbladder ultrasound limited exam failed to show the gallbladder. The bile duct does not appear dilated. ASSESSMENT: 1. Right lower quadrant abdominal pain with concerns for an acute appendicitis PLAN: -Follow up on HIDA scan results -Patient is scheduled for laparoscopic appendectomy today with Dr. Allen -Start IV antibiotics -Continue IV fluids -Keep patient nothing by mouth -Continue pain medication as needed -We'll consult medicine for medical management Physician Sap Consultant note has been reviewed by physician. Signing provider agrees with the documented findings, assessment, and plan of care. Past Medical History Past Medical History: Mitral Valve Prolapse (MVP), Osteoarthritis (OA) Additional Past Medical History / Comment(s): DDD, chronic rhinnitis. c-diff 6 or 7 years ago, incont of urine wears a pad. History of Any Multi-Drug Resistant Organisms: None Reported Past Surgical History: Back Surgery, Hysterectomy, Orthopedic Surgery Additional Past Surgical History / Comment(s): back fusion, heel spur, 08-21-16 lt total knee arthroplasty Past Anesthesia/Blood Transfusion Reactions: No Reported Reaction Additional Past Anesthesia/Blood Transfusion Reaction / Comment(s): after knee sx done (part of her aa was a spinal) and for few days afer sx c/o muscle spasms/cramps in legs. hx of clausterphobia Past Psychological History: No Psychological Hx Reported, Depression Additional Psychological History / Comment(s): occ mild bouts of depression takes no meds. at time of this admit denies any feelings. pt lives alone in her own single level home that has 3 steps to enter. has [facility] home care. uses a walker when up since knee sx. pt's sister helps her out. pt drives but not since sx in august. Smoking Status: Never smoker Past Alcohol Use History: None Reported Past Drug Use History: None Reported - Past Family History Mother Family Medical History: COPD, Hypertension Father Family Medical History: Osteoarthritis (OA) Medications and Allergies Home Medications Medication Instructions Recorded Confirmed Type Meloxicam [Mobic] 15 mg PO DAILY 08/14/16 07/25/20 History rOPINIRole HCL [Requip] 1 mg PO HS 08/14/16 07/25/20 History Citalopram Hydrobromide [CeleXA] 20 mg PO DAILY 07/25/20 07/25/20 History HYDROcodone/APAP 10-325MG [[place] 0.5 tab PO Q3H 07/25/20 07/25/20 History 10-325] Metoprolol Tartrate [Lopressor] 25 mg PO DAILY 07/25/20 07/25/20 History Allergies Allergy/AdvReac Type Severity Reaction Status Date / Time No Known Allergies Allergy Verified 07/25/20 18:36 Surgical - Exam Vital Signs Temp Pulse Resp BP Pulse Ox 98.5 F 51 L 18 140/56 96 07/25/20 15:04 07/25/20 15:04 07/25/20 15:04 07/25/20 15:04 07/25/20 15:04 Results - Labs 07/25/20 15:20 07/25/20 15:20 Abnormal Lab Results - Last 24 Hours (Table) 07/25/20 07/25/20 Range/Units 15:20 15:20 Lymphocytes # 0.8 L (1.0-4.8) k/uL Chloride 110 H (98-107) mmol/L BUN 20 H (7-17) mg/dL Glucose 121 H (74-99) mg/dL Diabetes panel 07/25/20 Range/Units 15:20 Sodium 140 (137-145) mmol/L Potassium 4.2 (3.5-5.1) mmol/L Chloride 110 H (98-107) mmol/L Carbon Dioxide 23 (22-30) mmol/L BUN 20 H (7-17) mg/dL Creatinine 0.72 (0.52-1.04) mg/dL Glucose 121 H (74-99) mg/dL Calcium 9.2 (8.4-10.2) mg/dL AST 24 (14-36) U/L ALT 13 (4-34) U/L Alkaline Phosphatase 86 (38-126) U/L Total Protein 6.9 (6.3-8.2) g/dL Albumin 4.1 (3.5-5.0) g/dL Calcium panel 07/25/20 Range/Units 15:20 Calcium 9.2 (8.4-10.2) mg/dL Albumin 4.1 (3.5-5.0) g/dL Pituitary panel 07/25/20 Range/Units 15:20 Sodium 140 (137-145) mmol/L Potassium 4.2 (3.5-5.1) mmol/L Chloride 110 H (98-107) mmol/L Carbon Dioxide 23 (22-30) mmol/L BUN 20 H (7-17) mg/dL Creatinine 0.72 (0.52-1.04) mg/dL Glucose 121 H (74-99) mg/dL Calcium 9.2 (8.4-10.2) mg/dL Adrenal panel 07/25/20 Range/Units 15:20 Sodium 140 (137-145) mmol/L Potassium 4.2 (3.5-5.1) mmol/L Chloride 110 H (98-107) mmol/L Carbon Dioxide 23 (22-30) mmol/L BUN 20 H (7-17) mg/dL Creatinine 0.72 (0.52-1.04) mg/dL Glucose 121 H (74-99) mg/dL Calcium 9.2 (8.4-10.2) mg/dL Total Bilirubin 0.6 (0.2-1.3) mg/dL AST 24 (14-36) U/L ALT 13 (4-34) U/L Alkaline Phosphatase 86 (38-126) U/L Total Protein 6.9 (6.3-8.2) g/dL Albumin 4.1 (3.5-5.0) g/dL
[2020-07-26 09:36] LABS: African American GFR (CKD) 98.2 (60.0-200.0); Anion Gap 5.7 mmol/L (4.00-12.00); BUN/Creat Ratio 21.43 Ratio (12.00-20.00); Calcium 9.4 mg/dL (8.7-10.3); Carbon Dioxide 27.3 mmol/L (21.6-31.8); Non-African American GFR(CKD) 84.8 (60.0-200.0)
[2020-07-26 09:50] LABS: Basophils # (A) 0.05 X 10*3/uL (0.00-0.10); Basophils % (A) 0.9 %; Eosinophils # (A) 0.03 X 10*3/uL (0.04-0.35); Eosinophils % (A) 0.6 %; HCT 38.9 % (37.2-46.3); HGB 12.4 g/dL (12.0-15.0); Lymphocytes # (A) 1.56 X 10*3/uL (0.90-5.00); Lymphocytes % (A) 28.6 %; MCH 31.7 pg (27.0-32.0); MCHC 31.9 g/dL (32.0-37.0); MCV 99.5 fL (80.0-97.0); Neutrophils % (A) 58.7 %; Platelet Count 257 X 10*3/uL (140-440); RBC 3.91 X 10*6/uL (4.10-5.20); RDW 12.8 % (11.5-14.5); WBC 5.45 X 10*3/uL (4.50-10.00)
[2020-07-26] MEDS: PIPERACILLIN-TAZOBACTAM 3.375 GM in SODIUM CHLORIDE 0.9% 100 ML IVPB SCH ×3 (11:05→23:27)
--- NOTE | 2020-07-26 14:29 | NM ---
Nuclear medicine hepatobiliary scan. HISTORY: Pain. DOSAGE: The patient received 2.0 micrograms of CCK and 4.8 mCi of Technetium 99m Choletec. FINDINGS: There is normal hepatic extraction. The gallbladder is seen by 30 minutes. Ejection frac tion is 73%. IMPRESSION: 1. No diagnostic evidence of cholecystitis.
[2020-07-26] MEDS ORDERED: ONDANSETRON 4 MG/2 ML VIAL ONE (17:06)
[2020-07-26] MEDS ORDERED: IV FLUID CONTINUATION 300 ML IV ONE (17:10)
[2020-07-26] MEDS ORDERED: ONDANSETRON 4 MG/2 ML VIAL IVP ONE (17:10)
[2020-07-26] MEDS ORDERED: DEXAMETHASONE SOD PHOSPHATE 4 MG/ML 1 ML VIAL IV ONE (17:11)
[2020-07-26] MEDS ORDERED: PROPOFOL 10 MG/ML 20 ML VIAL IV ONE (18:30)
[2020-07-26] MEDS ORDERED: MIDAZOLAM 2 MG/2 ML VIAL ONE (18:30)
[2020-07-26] MEDS ORDERED: ROCURONIUM 10 MG/ML (5 ML VIAL) IV ONE (18:30)
[2020-07-26] MEDS ORDERED: ATROPINE SULFATE 0.4 MG/ML 1 ML VIAL ONE (18:30)
[2020-07-26] MEDS ORDERED: LIDOCAINE 1% INJ 10MG/ML (20 ML MDV) ONE (18:30)
[2020-07-26] MEDS ORDERED: SUCCINYLCHOLINE CHLORIDE 100 MG/5 ML SYR IV ONE (18:30)
[2020-07-26] MEDS ORDERED: NEOSTIGMINE 1 MG/ML 10 ML VIAL ONE (18:30)
[2020-07-26] MEDS ORDERED: GLYCOPYRROLATE 0.2 MG/ML 2 ML VIAL ONE (18:30)
[2020-07-26] MEDS ORDERED: fentaNYL (PF) 50 MCG/ML 2 ML AMP ONE (18:30)
[2020-07-26] MEDS ORDERED: BUPIVACAINE-EPI 0.5%-1:200,000 10 ML VIAL SQ ONE (18:52)
[2020-07-26] MEDS ORDERED: LACTATED RINGERS 1,000 ML IV ONE (19:06)
--- NOTE | 2020-07-26 19:10 | P.OP ---
Date of Procedure: 07/26/20 Preoperative Diagnosis: Acute appendicitis Postoperative Diagnosis: Acute appendicitis Procedure(s) Performed: Laparoscopic appendectomy Anesthesia: SHIVANI Surgeon: Everton Allen Pathology: other (Appendix) Condition: stable Disposition: PACU Description of Procedure: HarThe patient's placed on the operating table in the supine position. The patient received general anesthesia. The abdomen was prepped and draped in the usual sterile fashion. The skin was anesthetized 1% local Xylocaine at the trocar sites. Using an 11 blade the skin was incised at the umbilicus. The umbilicus was grasped with a Jony clamp and then a Veress needle was placed into the peritoneal cavity. Position of the Veress needle was confirmed with positive drop test. After adequate insufflation a 5 mm trocar was placed into the peritoneal cavity. The abdomen was further insufflated. And then the l aparoscope was placed in the peritoneal cavity. Next a 5 mm trocar was placed in the midline suprapubic position. And then a 10 mm trocar was placed in the midline epigastric position. The patient was rotated with the right side up and in Trendelenburg. The appendix was visualized. The appendix appeared to be inflamed. The appendix was grasped and then using the Harmonic scissors the mesoappendix was divided. A PDS Endoloop was then placed around the base of the appendix. And then the appendix was divided using Harmonic scissors. The appendix was placed into an Endo Catch and brought out through the 10 mm trocar site. The abdomen was irrigated. There is no bleeding seen. The trochars withdrawn. The skin was closed interrupted 3-0 Monocryl suture. Dermabond dressing was applied. Patient was sent to recovery room in stable condition.
[2020-07-26] MEDS ORDERED: MORPHINE SULFATE 4 MG/ML SYRINGE IVP ONE (19:45)
--- NOTE | 2020-07-26 22:36 | P.CONS ---
History of Present Illness - Reason for Consult Consult date: 07/26/20 Medical management Requesting physician: Everton Allen - Chief Complaint Abdominal pain - History of Present Illness Consultation: This is a pleasant 75-year-old patient follows with visiting physician Dr. Mitchell. Chronic stable medical conditions include mitral valve prolapse, ostial arthritis, urinary incontinence, chronic gait dysfunction does use a wheelchair/walker. Patient now presents with pain progressively getting worse in the right lower quadrant. No fever no chills. Had nausea. Normally has a bowel movement every 7 days because of taking narcotics. Pain tries to progress decided to come to the ER. Was no obvious fever and chills. Patient earlier today underwent laparoscopic appendectomy by Dr. Allen. Postprocedure laying in bed. Some pain at the operative site. Review of systems: GEN.: Tired EYES: None HEENT: None NECK: None RESPIRATORY: None CARDIOVASCULAR: None GASTROINTESTINAL: As above GENITOURINARY: Incontinence MUSCULOSKELETAL: Joint pains LYMPHATICS: None HEMATOLOGICAL: None PSYCHIATRY: None NEUROLOGICAL: None, Past medical history to include: Mitral valve prolapse, osteoarthritis, and continence of urine, Social history: Does use a wheelchair walker. No history of smoking or alcohol. Physical examination: VITAL SIGNS: 98.9, 72, 16, 141 x 56, 94% on 2 L GENERAL: BMI 34.1, laying in bed, awake. EYES: Pupils equal. Conjunctiva normal. HEENT: External appearance of nose and ears normal, oral cavity grossly normal. NECK: JVD not raised; masses not palpable. HEART: First and second heart sounds are normal; no edema. LUNGS: Respiratory rate normal; clear to auscultation. ABDOMEN: Soft, right lower quadrant tenderness, no guarding rigidity, liver spleen not palpable, no masses palpable. MUSCULAR skeletal: Evidence of OA PSYCH: Alert and oriented x3; mood and affect slightly anxiousl. NEUROLOGICAL: Cranial nerves grossly intact; no facial asymmetry, power and sensation grossly intact. LYMPHATICS: No lymph nodes palpable in the axilla and neck INVESTIGATIONS, reviewed in the clinical context: WBC 5.4 hemoglobin 12.4 platelets 257 potassium 4 creatinine 0.7 Coronavirus [PCR]-not detected Computed tomography scan of the abdomen and pelvis with contrast multilevel lumbar spondylitic changes. 1.5 cm umbilical hernia with fat atelectasis HIDA scan-no evidence of cholecystitis Assessment and plan: -This is a patient presented with right lower quadrant pain progressive. With nausea. No fever no chills. Patient earlier today was taken down for laparoscopic appendectomy with Dr. Allen. -Obesity BMI 34.1. Patient to want a low-calorie diet and follow-up with her family doctor for the same -Mitral valve prolapse. Follow clinically -Primary osteoarthritis use Tylenol when necessary -Chronic urinary stress incontinence. Patient uses a pad. Currently Garzon catheter -DVT prophylaxis. Subcu Lovenox. Continue current medication treatment plan. Home medications resumed. Patient is on IV Zosyn. IV fluids. . Care was discussed with the patient question also. Thank you Dr. Allen Past Medical History Past Medical History: Mitral Valve Prolapse (MVP), Osteoarthritis (OA) Additional Past Medical History / Comment(s): DDD, chronic rhinnitis. c-diff 6 or 7 years ago, incont of urine wears a pad. History of Any Multi-Drug Resistant Organisms: None Reported Past Surgical History: Back Surgery, Hysterectomy, Orthopedic Surgery Additional Past Surgical History / Comment(s): back fusion, heel spur, 08-21-16 lt total knee arthroplasty Past Anesthesia/Blood Transfusion Reactions: No Reported Reaction Additional Past Anesthesia/Blood Transfusion Reaction / Comm: after knee sx done (part of her aa was a spinal) and for few days afer sx c/o muscle spasms/cramps in legs. hx of clausterphobia Past Psychological History: No Psychological Hx Reported, Depression Additional Psychological History / Comment(s): occ mild bouts of depression takes no meds. at time of this admit denies any feelings. pt lives alone in her own single level home that has 3 steps to enter. has [facility] home care. uses a walker when up since knee sx. pt's sister helps her out. pt drives but not since sx in august. Smoking Status: Never smoker Past Alcohol Use History: None Reported Past Drug Use History: None Reported - Past Family History Mother Family Medical History: COPD, Hypertension Father Family Medical History: Osteoarthritis (OA) Medications and Allergies Home Medications Medication Instructions Recorded Confirmed Type Meloxicam [Mobic] 15 mg PO DAILY 08/14/16 07/25/20 History rOPINIRole HCL [Requip] 1 mg PO HS 08/14/16 07/25/20 History Citalopram Hydrobromide [CeleXA] 20 mg PO DAILY 07/25/20 07/25/20 History HYDROcodone/APAP 10-325MG [[employer] 0.5 tab PO Q3H 07/25/20 07/25/20 History 10-325] Metoprolol Tartrate [Lopressor] 25 mg PO DAILY 07/25/20 07/25/20 History Allergies Allergy/AdvReac Type Severity Reaction Status Date / Time No Known Allergies Allergy Verified 07/26/20 16:57 Physical Exam Vitals: Vital Signs Temp Pulse Pulse Resp BP BP Pulse Ox 07/26/20 07:00 97.9 F 63 18 135/80 96 07/26/20 02:00 98.6 F 62 16 122/76 96 07/25/20 20:00 98.9 F 51 L 16 146/72 96 07/25/20 19:11 98.9 F 16 146/72 96 07/25/20 18:30 98.0 F 54 L 18 126/62 95 07/25/20 17:09 59 L 18 140/60 95 07/25/20 15:04 98.5 F 51 L 18 140/56 96 Intake and Output 07/25/20 07/26/20 07/26/20 22:59 06:59 14:59 Other: Voiding Method Bedside Commode Bedside Commode # Voids 1 2 1 # Bowel Movements 0 Weight 95.708 kg Results CBC & Chem 7: 07/26/20 04:25 07/26/20 04:25 Labs: Abnormal Lab Results - Last 24 Hours (Table) 07/25/20 07/25/20 07/26/20 Range/Units 15:20 15:20 04:25 RBC 3.91 L (4.10-5.20) X 10*6/uL MCV 99.5 H (80.0-97.0) fL MCHC 31.9 L (32.0-37.0) g/dL Lymphocytes # 0.8 L (1.0-4.8) k/uL Eosinophils # 0.03 L (0.04-0.35) X 10*3/uL Chloride 110 H (98-107) mmol/L BUN 20 H (7-17) mg/dL BUN/Creatinine Ratio (12.00-20.00) Ratio Glucose 121 H (74-99) mg/dL 07/26/20 Range/Units 04:25 RBC (4.10-5.20) X 10*6/uL MCV (80.0-97.0) fL MCHC (32.0-37.0) g/dL Lymphocytes # (1.0-4.8) k/uL Eosinophils # (0.04-0.35) X 10*3/uL Chloride (98-107) mmol/L BUN (7-17) mg/dL BUN/Creatinine Ratio 21.43 H (12.00-20.00) Ratio Glucose (74-99) mg/dL
[2020-07-27] MEDS: SODIUM CHLORIDE 0.9% 1,000 ML IV SCH (00:01)
[2020-07-27 00:40] VITALS: RESP 18
[2020-07-27] MEDS: HYDROcodone/APAP 10-325MG 1 EACH TAB PO SCH ×3 (02:04→08:23)
[2020-07-27 07:32] VITALS: BP 114/70; PULSE 69; TEMP 99
[2020-07-27] MEDS: METOPROLOL TARTRATE 25 MG TAB PO SCH (08:23)
[2020-07-27] MEDS: PIPERACILLIN-TAZOBACTAM 3.375 GM in SODIUM CHLORIDE 0.9% 100 ML IVPB SCH (08:27)
[2020-07-27 09:33] LABS: Basophils % (A) 0 %; Eosinophils % (A) 0 %; HCT 37.3 % (34.0-46.0); Lymphocytes # (A) 0.7 k/uL (1.0-4.8); Lymphocytes % (A) 6 %; MCH 31.5 pg (25.0-35.0); MCHC 32.2 g/dL (31.0-37.0); Monocytes # (A) 0.5 k/uL (0-1.0); Monocytes % (A) 4 %; Neutrophils # (A) 10.4 k/uL (1.3-7.7); Neutrophils % (A) 89 %; Platelet Count 223 k/uL (150-450); RBC 3.81 m/uL (3.80-5.40); RDW 12.9 % (11.5-15.5); WBC 11.6 k/uL (3.8-10.6)
[2020-07-27] MEDS: MELOXICAM 7.5 MG TAB PO SCH (09:51)
[2020-07-27] MEDS: CITALOPRAM HYDROBROMIDE 20 MG TAB PO SCH (09:52)
--- NOTE | 2020-07-27 11:39 | P.DS ---
Providers Date of admission: 07/25/20 17:59 Expected date of discharge: 07/27/20 Attending physician: Everton Allen Consults: 07/26/20 08:34 Consult Physician Routine Consulting Provider: Tej Child Consult Reason/Comments: medical management Do you want consulting provider notified?: Yes Primary care physician: Chau Mitchell MD Hospital Course: Discharge diagnosis 1. Acute appendicitis status post laparoscopic Appendectomy Hospital course this is a 75-year-old female with a known history of C. diff colitis, hysterectomy, mitral valve prolapse, osteoarthritis and degenerative disc disease. She presents to the emergency room with complaints of right lower quadrant abdominal pain 1 day. She's also been having nausea, fever, chills or sweats. She had computed tomography scan of the abdomen and pelvis had showed mild enlargement of the biliary tree. This could relate to gallbladder dysfunction. No obstructing lesions seen. Gallbladder ultrasound limited exam failed to show the gallbladder. The bile duct does not appear dilated. Patient is still complaining of right lower quadrant pain. HIDA scan was normal with an EF of 73% and showed no evidence of cholecystitis. Patient underwent laparoscopic appendectomy for an acute appendicitis. Patient reports that her pain is controlled. She denies any nausea vomiting. She is tolerating diet. S he has been up and ambulating. She is afebrile. White count 11.6 at discharge. She'll be discharged with antibiotic. Patient is stable for discharge. Please refer to chart for any further details. Physician Parachute Packer note has been reviewed by physician. Signing provider agrees with the documented findings, assessment, and plan of care. Patient Condition at Discharge: Stable Plan - Discharge Summary Discharge Rx Participant: No New Discharge Prescriptions: New Amoxicillin/Potassium Clav [Augmentin 875-125 Tablet] 1 tab PO Q12HR #14 tab Continue rOPINIRole HCL [Requip] 1 mg PO HS Meloxicam [Mobic] 15 mg PO DAILY Metoprolol Tartrate [Lopressor] 25 mg PO DAILY Citalopram Hydrobromide [CeleXA] 20 mg PO DAILY HYDROcodone/APAP 10-325MG [[place] 10-325] 0.5 tab PO Q3H Discharge Medication List Meloxicam [Mobic] 15 mg PO DAILY 08/14/16 [History] rOPINIRole HCL [Requip] 1 mg PO HS 08/14/16 [History] Citalopram Hydrobromide [CeleXA] 20 mg PO DAILY 07/25/20 [History] HYDROcodone/APAP 10-325MG [[place] 10-325] 0.5 tab PO Q3H 07/25/20 [History] Metoprolol Tartrate [Lopressor] 25 mg PO DAILY 07/25/20 [History] Amoxicillin/Potassium Clav [Augmentin 875-125 Tablet] 1 tab PO Q12HR #14 tab 07/27/20 [Rx] Follow up Appointment(s)/Referral(s): Chau Mitchell MD [Primary Care Provider] - 3 Days Everton Allen MD [STAFF PHYSICIAN] - 1 Week Activity/Diet/Wound Care/Special Instructions: No driving while taking [place] No lifting over 10 pounds You may shower. No soaking or tub baths 2 weeks Very light activity until you are reevaluated at your follow up appointment with your surgeon Discharge Disposition: HOME SELF-CARE
[2020-07-27] MEDS ORDERED: ROPIVACAINE 5MG/ML 20ML VIAL ONE (13:57)
[2020-07-27] MEDS ORDERED: MIDAZOLAM 2 MG/2 ML VIAL ONE (13:57)
[2020-07-27] MEDS ORDERED: TRIAMCINOLONE ACETONIDE 40 MG/ML 1 ML VIAL ONE (13:57)
--- NOTE | 2020-07-27 18:59 | P.PN ---
Progress Note - Text Progress Note Date: 07/27/20 - Chief Complaint Abdominal pain Consultation: This is a pleasant 75-year-old patient follows with visiting physician Dr. Mitchell. Chronic stable medical conditions include mitral valve prolapse, osteoarthritis, urinary incontinence, chronic gait dysfunction does use a wheelchair/walker. Patient now presents with pain progressively getting worse in the right lower quadrant. No fever no chills. Had nausea. Normally has a bowel movement every 7 days because of taking narcotics. Pain was worsening so decided to come to the ER. Was no obvious fever and chills. Patient underwent laparoscopic appendectomy by Dr. Allen. Today-feeling much better. Pain better controlled. Oral intake better. Seen by surgery. Patient has been discharged. I will prescribe 7 days of Augmentin. No nausea vomiting Review of systems: Was done for constitutional, cardiovascular, GI, pulmonary. relevant finding as above Current medications reviewed in today's electronic records Past medical history to include: Mitral valve prolapse, osteoarthritis, and continence of urine, Social history: Does use a wheelchair walker. No history of smoking or alcohol. Physical examination: VITAL SIGNS: 99, 69, 18, 114/70, 94% on 2 L GENERAL: Declining bed, comfortable EYES: Pupils equal. Conjunctiva normal. HEENT: External appearance of nose and ears normal, oral cavity grossly normal. NECK: JVD not raised; masses not palpable. HEART: First and second heart sounds are normal; no edema. LUNGS: Respiratory rate normal; clear to auscultation. ABDOMEN: Soft, mild right lower quadrant tenderness, no guarding rigidity, liver spleen not palpable, no masses palpable. MUSCULAR skeletal: Evidence of OA PSYCH: Alert and oriented x3; mood and affect slightly anxiousl. INVESTIGATIONS, reviewed in the clinical context: July 27: WBC 11.6 hemoglobin 12 WBC 5.4 hemoglobin 12.4 platelets 257 potassium 4 creatinine 0.7 Coronavirus [PCR]-not detected Computed tomography scan of the abdomen and pelvis with contrast multilevel lumbar spondylitic changes. 1.5 cm umbilical hernia with fat atelectasis HIDA scan-no evidence of cholecystitis Assessment and plan: -Acute appendicitis. Followed by laparoscopic appendectomy -Obesity BMI 34.1. Patient to want a low-calorie diet and follow-up with her family doctor for the same -Mitral valve prolapse. Follow clinically -Primary osteoarthritis use Tylenol when necessary -Chronic urinary stress incontinence. Patient uses a pad. Currently Garzon catheter -DVT prophylaxis. Subcu Lovenox. Continue current medication treatment plan. Another 7 days of Augmentin. Diet advanced as tolerated. Follow-up with PCP Thank you Dr. Allen
== END 2020-07-27 12:34 | disposition home or self-care (01) ==
LOC: EC 14:57 → 6NMEDSUR 17:59
PROVIDERS: ADMIT Surgery; ATTEND Surgery
DX: K35.80 Unspecified acute appendicitis (principal); I34.1 Nonrheumatic mitral (valve) prolapse; N39.3 Stress incontinence (female) (male); R26.89 Other abnormalities of gait and mobility; K82.8 Other specified diseases of gallbladder; E66.9 Obesity, unspecified; M19.91 Primary osteoarthritis, unspecified site; F32.9 Major depressive disorder, single episode, unspecified; Z79.899 Other long term (current) drug therapy; Z79.1 Long term (current) use of non-steroidal anti-inflammatories (NSAID); Z96.652 Presence of left artificial knee joint; Z87.891 Personal history of nicotine dependence; Z82.5 Family history of asthma and other chronic lower respiratory diseases; Z68.34 Body mass index [BMI] 34.0-34.9, adult; Z20.822 Contact with and (suspected) exposure to COVID-19; Z82.49 Family history of ischemic heart disease and other diseases of the circulatory system; Z90.710 Acquired absence of both cervix and uterus; Z86.19 Personal history of other infectious and parasitic diseases; Z98.1 Arthrodesis status
CPT/HCPCS: 96361; 96374; 99285; 36415; 93005; 80053; 80048; 85025 ×3; 87635; 76705; 74177; 78227; 44970; G0378 ×3; A9537; J2543 ×2; J2250 ×2; J2270 ×2; J0461; J1100; J3301; J2710; J2405; J2805; J2001; J3010; J0330; J2704; Q9967; J2795; 88304

== ENCOUNTER 2021-03-31 12:58 | Inpatient (IN) | payer MEDICARE ==
[2021-03-31] MEDS ORDERED: MORPHINE SULFATE 4 MG/ML SYRINGE IVP STA (13:54)
[2021-03-31 14:02] LABS: Basophils % (A) 1 %; Eosinophils % (A) 1 %; HCT 38.6 % (34.0-46.0); HGB 12.5 gm/dL (11.4-16.0); Lymphocytes # (A) 1.1 k/uL (1.0-4.8); Lymphocytes % (A) 19 %; MCH 31.7 pg (25.0-35.0); MCHC 32.4 g/dL (31.0-37.0); Mean Platelet Volume 8.8; Monocytes # (A) 0.3 k/uL (0-1.0); Monocytes % (A) 5 %; Neutrophils # (A) 4.1 k/uL (1.3-7.7); Neutrophils % (A) 73 %; Platelet Count 251 k/uL (150-450); RBC 3.93 m/uL (3.80-5.40); RDW 12.5 % (11.5-15.5); WBC 5.6 k/uL (3.8-10.6)
--- NOTE | 2021-03-31 14:13 | XR ---
EXAMINATION TYPE: XR ankle complete RT DATE OF EXAM: 03/31/2021 COMPARISON: NONE HISTORY: Pain FINDINGS: Three views of the ankle demonstrate the ankle mortise to be intact and symmetric. There is a displac ed fracture involving the distal fibula. Cord or irregularity involving the medial margin the tibia a lso is patent with fracture. Overlying casting material limits evaluation. Calcaneal spur and plans p lanus deformity noted. IMPRESSION: 1. Displaced fracture distal fibula. 2. Suspect displaced fracture medial margin distal tibia
[2021-03-31 14:16] LABS: ALT 13 U/L (4-34); African American GFR (CKD) >90 (>60 ml/min/1.73 sqM); Albumin 3.9 g/dL (3.5-5.0); Anion Gap 8 mmol/L; Blood Urea Nitrogen 15 mg/dL (7-17); Calcium 9.5 mg/dL (8.4-10.2); Carbon Dioxide 24 mmol/L (22-30); Chloride 106 mmol/L (98-107); Glucose 108 mg/dL (74-99); Non-African American GFR(CKD) >90 (>60 ml/min/1.73 sqM); Sodium 138 mmol/L (137-145); Total Bilirubin 1.2 mg/dL (0.2-1.3); Total Protein 6.8 g/dL (6.3-8.2)
[2021-03-31 14:24] LABS: AST 24 U/L (14-36); Alkaline Phosphatase 70 U/L (38-126); Potassium 3.7 mmol/L (3.5-5.1)
[2021-03-31] MEDS ORDERED: NALOXONE 0.4 MG/ML 1 ML VIAL IV PRN (14:38)
--- NOTE | 2021-03-31 14:38 | ED ---
Lower Extremity Injury HPI - General Chief Complaint: Extremity Injury, Lower Stated Complaint: Fall-R ankle injury Time Seen by Provider: 03/31/21 13:15 Source: EMS Mode of arrival: EMS Limitations: no limitations - History of Present Illness Initial Comments: 35-year-old female presents emergency department with a reported right broken ankle. She sustained a fall yesterday and went into [facility]. She had x-rays performed which demonstrated a by mouth fracture. She was placed in an of glass splint. She was told that she would not need surgery and that she needed to call and follow up with orthopedic surgeon to be seen in office. She attempted to go home last night. She has [place] tens at home for pain control and has been taking it without improvement in her pain. Patient states that she's been unable to do anything for herself. She has been unable to get up to get to her phone. She called EMS last night to assist her off the toilet. She then had a call again today because she was unable to care for herself. States that she lives alone. Denies any new falls. Has had previous left knee replacement by Dr. Garcia. No other alleviating, precipitating or modifying factors - Related Data Home Medications Medication Instructions Recorded Confirmed Meloxicam [Mobic] 15 mg PO DAILY 08/14/16 03/31/21 rOPINIRole HCL [Requip] 1 mg PO HS 08/14/16 03/31/21 Citalopram Hydrobromide [CeleXA] 20 mg PO DAILY 07/25/20 03/31/21 Cranberry Fruit Extract [Cranberry] 500 mg PO HS 03/31/21 03/31/21 Previous Rx's Medication Instructions Recorded Cyclobenzaprine [Flexeril] 5 mg PO BID PRN #15 tablet 04/05/21 Docusate [Colace] 100 mg PO DAILY #30 capsule 04/05/21 HYDROcodone/APAP 10-325MG [[place] 1 tab PO Q6HR PRN 3 Days #12 tab 04/05/21 10-325] Heparin Sodium,Porcine [Heparin 5,000 unit SQ Q8HR #90 each 04/05/21 Sodium] polyethylene glycoL 3350 [Miralax] 17 gm PO DAILY PRN #15 packet 04/05/21 Lisinopril-Hctz 10-12.5 mg 1 each PO HS tab 04/06/21 [Zestoretic 10-12.5] Metoprolol Tartrate [Lopressor] 12.5 mg PO BID tab 04/06/21 amLODIPine [Norvasc] 5 mg PO DAILY tab 04/06/21 Allergies Allergy/AdvReac Type Severity Reaction Status Date / Time beet AdvReac Nausea & Verified 03/31/21 14:39 Vomiting Review of Systems ROS Statement: Those systems with pertinent positive or pertinent negative responses have been documented in the HPI. ROS Other: All systems not noted in ROS Statement are negative. Past Medical History Past Medical History: Mitral Valve Prolapse (MVP), Osteoarthritis (OA) Additional Past Medical History / Comment(s): DDD, chronic rhinnitis. c-diff 6 or 7 years ago, incont of urine wears a pad. History of Any Multi-Drug Resistant Organisms: None Reported Past Surgical History: Appendectomy, Back Surgery, Hysterectomy, Orthopedic Surgery Additional Past Surgical History / Comment(s): back fusion, heel spur, 4--17 lt total knee arthroplasty Past Anesthesia/Blood Transfusion Reactions: No Reported Reaction Additional Past Anesthesia/Blood Transfusion Reaction / Comment(s): after knee sx done (part of her aa was a spinal) and for few days afer sx c/o muscle spasms/cramps in legs. hx of clausterphobia Past Psychological History: No Psychological Hx Reported, Depression Smoking Status: Never smoker Past Alcohol Use History: None Reported Past Drug Use History: None Reported - Past Family History Mother Family Medical History: COPD, Hypertension Father Family Medical History: Osteoarthritis (OA) General Exam Limitations: no limitations General appearance: alert, in no apparent distress Head exam: Present: atraumatic, normocephalic, normal inspection Eye exam: Present: normal appearance, PERRL, EOMI. Absent: scleral icterus, conjunctival injection, periorbital swelling ENT exam: Present: normal exam, mucous membranes moist Neck exam: Present: normal inspection. Absent: tenderness, meningismus, lymphadenopathy Respiratory exam: Present: normal lung sounds bilaterally. Absent: respiratory distress, wheezes, rales, rhonchi, stridor Cardiovascular Exam: Present: regular rate, normal rhythm, normal heart sounds. Absent: systolic murmur, diastolic murmur, rubs, gallop, clicks GI/Abdominal exam: Present: soft, normal bowel sounds. Absent: distended, tenderness, guarding, rebound, rigid Extremities exam: Present: tenderness, normal capillary refill, joint swelling (right ankle - in pre padded splint from outside facility. compartments soft. Patient able to wiggle toes). Absent: pedal edema, calf tenderness Back exam: Present: normal inspection Neurological exam: Present: alert, oriented X3, CN II-XII intact Psychiatric exam: Present: normal affect, normal mood Skin exam: Present: warm, dry, intact, normal color. Absent: rash Course Vital Signs 03/31/21 03/31/21 03/31/21 13:14 15:15 18:01 Temperature 97.9 F Pulse Rate 62 54 L 67 Respiratory 20 18 18 Rate Blood Pressure 161/67 127/73 137/63 O2 Sat by Pulse 99 96 97 Oximetry Medical Decision Making - Medical Decision Making Upon arrival patient was placed into room 33. X-rays are performed which demonstrate a kinsey fracture. Laboratory studies were obtained. I called and spoke with Juarez Babcock. Patient will be admitted to Dr. Venegas. Preop clearance requested. Dr. Child will be placed on consult. She remained in stable condition awaiting a bed - Lab Data Result diagrams: 04/05/21 05:18 04/01/21 06:52 Lab Results 03/06/21 03/31/21 03/31/21 Range/Units 10:30 13:47 13:47 WBC 5.6 (3.8-10.6) k/uL RBC 3.93 (3.80-5.40) m/uL Hgb 12.5 (11.4-16.0) gm/dL Hct 38.6 (34.0-46.0) % MCV 98.0 (80.0-100.0) fL MCH 31.7 (25.0-35.0) pg MCHC 32.4 (31.0-37.0) g/dL RDW 12.5 (11.5-15.5) % Plt Count 251 (150-450) k/uL MPV 8.8 Neutrophils % 73 % Lymphocytes % 19 % Monocytes % 5 % Eosinophils % 1 % Basophils % 1 % Neutrophils # 4.1 (1.3-7.7) k/uL Lymphocytes # 1.1 (1.0-4.8) k/uL Monocytes # 0.3 (0-1.0) k/uL Eosinophils # 0.0 (0-0.7) k/uL Basophils # 0.0 (0-0.2) k/uL Sodium 138 (137-145) mmol/L Potassium 3.7 (3.5-5.1) mmol/L Chloride 106 (98-107) mmol/L Carbon Dioxide 24 (22-30) mmol/L Anion Gap 8 mmol/L BUN 15 (7-17) mg/dL Creatinine 0.54 (0.52-1.04) mg/dL Est GFR (CKD-EPI)AfAm >90 (>60 ml/min/1.73 sqM) Est GFR (CKD-EPI)NonAf >90 (>60 ml/min/1.73 sqM) Glucose 108 H (74-99) mg/dL Calcium 9.5 (8.4-10.2) mg/dL Total Bilirubin 1.2 (0.2-1.3) mg/dL AST 24 (14-36) U/L ALT 13 (4-34) U/L Alkaline Phosphatase 70 (38-126) U/L Total Protein 6.8 (6.3-8.2) g/dL Albumin 3.9 (3.5-5.0) g/dL Urine Color Light Yellow Urine Appearance Clear (Clear) Urine pH 6.0 (5.0-8.0) Ur Specific [place] 1.011 (1.001-1.035) Urine Protein Negative (Negative) Urine Glucose (UA) Negative (Negative) Urine Ketones Negative (Negative) Urine Blood Negative (Negative) Urine Nitrite Negative (Negative) Urine Bilirubin Negative (Negative) Urine Urobilinogen <2.0 (<2.0) mg/dL Ur Leukocyte Esterase Small H (Negative) Urine RBC <1 (0-5) /hpf Urine WBC 1 (0-5) /hpf Ur Squamous Epith Cells <1 (0-4) /hpf Urine Bacteria Occasional H (None) /hpf Urine Mucus Rare H (None) /hpf - EKG Data EKG Comments: EKG demonstrates sinus bradycardia with a rate of 55. KS interval 188. QRS 88. QTC of 401. Acute ST segment elevations or depressions Disposition Clinical Impression: Closed right ankle fracture, Fall Disposition: ADMITTED IP TO THIS HOSP Condition: Good Is patient prescribed a controlled substance at d/c from ED?: No Decision to Admit Reason: Admit from EC Decision Date: 03/31/21 Decision Time: 14:38
--- NOTE | 2021-03-31 16:01 | XR ---
EXAMINATION TYPE: XR chest 2V DATE OF EXAM: 03/31/2021 COMPARISON: 08/23/2016 HISTORY: Shortness of breath TECHNIQUE: Frontal and lateral views of the chest are obtained. FINDINGS: Scattered senescent parenchymal changes noted. Hyperinflation compatible with COPD. No evidence for infiltrate. No evidence for atelectasis. Chronic elevation right hemidiaphragm. Heart size is stable. Mediastinal structures are stable and grossly unremarkable. No evidence for hilar prominence. Degenerative changes dorsal spine. IMPRESSION: 1. No evidence for acute pulmonary disease.
--- NOTE | 2021-03-31 16:03 | P.HPOR ---
History of Present Illness H&P Date: 03/31/21 Chief Complaint: Right ankle fracture Patient is a 75-year-old female who presented to [facility] today for further evaluation of her right ankle. Apparently the patient fell at home yesterday when going down some stairs and injured her right ankle. She was seen at [facility], was determined she had an ankle fracture, she was placed in a posterior splint and follow-up was recommended for orthopedics and the outpatient setting. Patient was discharged home last night, since being home she's had a very difficult time with activities of daily living and was has been contacted and a few different occasions to help the patient around her [facility] se. Patient then requested to be transferred to [facility] for further evaluation. On arrival to the hospital, further imaging and lab tests were done. I was contacted by the emergency room staff regarding this patient, I was able to review the case including x-ray images with attending Dr. Story. Plan was for patient to be admitted under our orthopedic service with plan for surgical intervention and likely subacute rehab placement. Internal medicine has been placed on consult for medical management. Patient was evaluated in the emergency room today, she is resting in her hospital bed. She notes discomfort in the right ankle mainly when she attempts to move the leg. She is utilizing the posterior splint with Jitendra bandage fixation. She does have a history of a left total knee arthroplasty that was done by Dr. Ivy about 4 years ago. Patient has history of a previous lumbar surgery and chronic back pain. Patient denies any new onset cervical or thoracic pain. Patient denies any discomfort or pain of the upper extremities bilaterally. She denies any acute pain in the left lower extremity. Review of Systems Constitutional: Reports as per HPI Past Medical History Past Medical History: Mitral Valve Prolapse (MVP), Osteoarthritis (OA) Additional Past Medical History / Comment(s): DDD, chronic rhinnitis. c-diff 6 or 7 years ago, incont of urine wears a pad. History of Any Multi-Drug Resistant Organisms: None Reported Past Surgical History: Appendectomy, Back Surgery, Hysterectomy, Orthopedic Surgery Additional Past Surgical History / Comment(s): back fusion, heel spur, 4-10-17 lt total knee arthroplasty Past Anesthesia/Blood Transfusion Reactions: No Reported Reaction Additional Past Anesthesia/Blood Transfusion Reaction / Comment(s): after knee sx done (part of her aa was a spinal) and for few days afer sx c/o muscle spasms/cramps in legs. hx of clausterphobia Past Psychological History: No Psychological Hx Reported, Depression Smoking Status: Never smoker Past Alcohol Use History: None Reported Past Drug Use History: None Reported - Past Family History Mother Family Medical History: COPD, Hypertension Father Family Medical History: Osteoarthritis (OA) Medications and Allergies Home Medications Medication Instructions Recorded Confirmed Type Meloxicam [Mobic] 15 mg PO DAILY 08/14/16 03/31/21 History rOPINIRole HCL [Requip] 1 mg PO HS 08/14/16 03/31/21 History Citalopram Hydrobromide [CeleXA] 20 mg PO DAILY 07/25/20 03/31/21 History HYDROcodone/APAP 10-325MG [[place] 1 tab PO Q6H 07/25/20 03/31/21 History 10-325] Metoprolol Tartrate [Lopressor] 25 mg PO DAILY 07/25/20 03/31/21 History Cranberry Fruit Extract [Cranberry] 500 mg PO HS 03/31/21 03/31/21 History Allergies Allergy/AdvReac Type Severity Reaction Status Date / Time beet AdvReac Nausea & Verified 03/31/21 14:39 Vomiting Physical Examination Right lower extremity: Posterior splint with lateral stirrups are in good position and condition with Jitendra bandage fixation. Patient is able to wiggle the toes with no difficulty. Sensation to light touch both proximal distal to the splint are intact. Patient demonstrates no severe tenderness with palpation of the knee or upper leg. Compartments of the upper leg are soft to touch. Logroll maneuver reproduces no groin pain. Cap refill in the toes less than 2 seconds. General orthopedic exam: No point tenderness is appreciated in the bilateral upper extremities, she has full range of motion in all major muscle groups in the bilateral upper extremities, no focal neurological deficits She is nontender with palpation involving the cervical, thoracic or lumbar region both midline and paraspinal Exam of the left lower extremity demonstrates well-healed incision over the anterior knee, there is no effusion present. She demonstrates no point tenderne ss at the left lower extremity. No focal neurological deficits appreciated Results - Labs Labs: Abnormal Lab Results - Last 24 Hours (Table) 03/31/21 Range/Units 13:47 Glucose 108 H (74-99) mg/dL H & H 03/31/21 Range/Units 13:47 Hgb 12.5 (11.4-16.0) gm/dL Hct 38.6 (34.0-46.0) % Result Diagrams: 03/31/21 13:47 03/31/21 13:47 - Diagnostic results Ankle/Foot x-ray: report reviewed, image reviewed (Images and reports reviewed of the right ankle. Images demonstrate displaced right medial malleolus fracture and a displaced right distal fibular fracture.) Assessment and Plan Assessment: Displaced right bimalleolar ankle fracture Status post fall from standing Other medical comorbidities Plan: I was able to discuss the case, including with physical exam findings and imaging studies my attending Dr. Story. Patient will be admitted under orthopedic care with plan for surgical intervention, internal medicine has been placed on for medical management. We discussed the surgical treatment with the patient today at bedside, more specifically an open reduction internal fixation procedure. The risk and benefits of the procedure were discussed, this including but not excluding infection, blood loss, neurovascular injury, development of blood clots, and adequate healing of bone, need for subsequent surgery. Patient is in good understanding and would like to proceed. Due to the fact that the patient lives alone and is unable to participate in her activities of daily living, she will be admitted to [facility]. Surgery is scheduled for 04/02/2021. We'll be discussing with case management/social work for rehab placement. I anticipate a timeframe of nonweightbearing between 6-12 weeks, she will likely need assistance until then. Nothing by mouth after midnight on 04/01/2021, Regular diet at this time Pain medication, patient takes [place] 10 mg/325 mg at home, these will be restarted, IV pain medication for severe pain GI and DVT prophylaxis, subcu medication will be started now, held the night before surgery and restarted after surgery Nonweightbearing right lower extremity, ice and elevate often, leave splint in place at this time Medical recommendations PT/OT evaluation after surgery Further recommendations to follow Time with Patient: Less than 30
[2021-03-31] MEDS: MORPHINE SULFATE 4 MG/ML SYRINGE IV PRN ×2 (18:03→22:17)
[2021-03-31] MEDS ORDERED: NON FORMULARY DRUG (Cranberry Fruit Extract [Cranberry] 500 MG Tablet) PO SCH (21:00)
--- NOTE | 2021-03-31 21:13 | P.CONS ---
History of Present Illness - Reason for Consult Consult date: 03/31/21 Medical management Requesting physician: Clint Story - Chief Complaint Right ankle fracture - History of Present Illness This is a pleasant 75-year-old patient follows with visiting physician Dr. Mitchell. Chronic stable medical conditions include mitral valve prolapse, osteoarthritis, urinary incontinence, chronic gait dysfunction does use a wheelchair/walker. Patient had lumbar surgery many years ago. Did well for many years. Subsequently started having problems progressed to the point that patient not able to really walk well. Because of pain medications patient also is chronic constipation. Patient suffered a fall yesterday and went to [facility]. Injury to the right ankle. Found to have a fracture. They put a splint. Patient came home. Significant pain. Not able to get off the toilet seat. Had to call of the EMS. Brought in here. Patient has no active cardiac symptoms. No chest pain or shortness of breath.. Review of systems: GEN.: None EYES: None HEENT: None NECK: None RESPIRATORY: None CARDIOVASCULAR: None GASTROINTESTINAL: Chronic constipation GENITOURINARY: Incontinence MUSCULOSKELETAL: Joint pains, right ankle, lower back LYMPHATICS: None HEMATOLOGICAL: None PSYCHIATRY: None NEUROLOGICAL: Chronic weakness of lower extremities Past medical history to include: Mitral valve prolapse, osteoarthritis, and urinary incontinence, Social history: Does use a wheelchair walker. No history of smoking or alcohol. Lives alone Physical examination: VITAL SIGNS: 98.2, 55, 20, 122 by/88, 98% room air GENERAL: BMI 33.3, laying in bed, awake. EYES: Pupils equal. Conjunctiva normal. HEENT: External appearance of nose and ears normal, oral cavity grossly normal. NECK: JVD not raised; masses not palpable. HEART: First and second heart sounds are normal; no edema. LUNGS: Respiratory rate normal; clear to auscultation. ABDOMEN: Soft, no tenderness, no guarding rigidity, liver spleen not palpable, no masses palpable. MUSCULAR skeletal: Evidence of OA. Right ankle in a dressing. PSYCH: Alert and oriented x3; mood and affect slightly anxiousl. NEUROLOGICAL: Cranial nerves grossly intact; no facial asymmetry, not able to lift the lower extremities off the bed.. LYMPHATICS: No lymph nodes palpable in the axilla and neck INVESTIGATIONS, reviewed in the clinical context: White count 5.6 hemoglobin 12.5 platelets 251 sodium 1:30 potassium 3.7 creatinine 0.5 for Coronavirus [PCR]: Not detected EKG tracing personally reviewed by me-normal sinus rhythm. Rate 55 Chest x-ray film personally reviewed by me-questionable right diaphragm elevation. No obvious infiltrate. X-ray ankle complete right: Displaced fracture distal fibula. Suspect displaced fracture medial margin distal tibia. Assessment and plan: -Right ankle fracture involving the possible distal tibia and fibula. Currently - Jitendra wrap support. According the patient tentative surgery being scheduled for Sunday. -Obesity BMI 33 .1. Weight loss measures and follow-up with PCP -Chronic Mitral valve prolapse. Asymptomatic Follow clinically -Primary osteoarthritis multiple joints Pain medicines as needed -Chronic urinary stress incontinence. Patient uses a pad. -Chronic gait dysfunction. At the baseline uses a wheelchair/walker. Fall precautions -Essential hypertension Lopressor -Restless leg syndrome Requip 1 mg daily at bedtime Patient has very limited access daughters. Has no active cardiac symptoms. No chest pain or shortness breath. This should be relatively less blood loss surgery. From a cardiovascular standpoint patient is a [id number] risk given her age. Patient is no active cardiac indications for surgery. Otherwise patient is medically stable to proceed with surgery. Thank you Past Medical History Past Medical History: Mitral Valve Prolapse (MVP), Osteoarthritis (OA) Additional Past Medical History / Comment(s): DDD, chronic rhinnitis. c-diff 6 or 7 years ago, incont of urine wears a pad. History of Any Multi-Drug Resistant Organisms: None Reported Past Surgical History: Appendectomy, Back Surgery, Hysterectomy, Orthopedic Surgery Additional Past Surgical History / Comment(s): back fusion, heel spur, 08-21- lt total knee arthroplasty Past Anesthesia/Blood Transfusion Reactions: No Reported Reaction Additional Past Anesthesia/Blood Transfusion Reaction / Comm: after knee sx done (part of her aa was a spinal) and for few days afer sx c/o muscle spasms/cramps in legs. hx of clausterphobia Past Psychological History: No Psychological Hx Reported, Depression Smoking Status: Never smoker Past Alcohol Use History: None Reported Past Drug Use History: None Reported - Past Family History Mother Family Medical History: COPD, Hypertension Father Family Medical History: Osteoarthritis (OA) Medications and Allergies Home Medications Medication Instructions Recorded Confirmed Type Meloxicam [Mobic] 15 mg PO DAILY 08/14/16 03/31/21 History rOPINIRole HCL [Requip] 1 mg PO HS 08/14/16 03/31/21 History Citalopram Hydrobromide [CeleXA] 20 mg PO DAILY 07/25/20 03/31/21 History HYDROcodone/APAP 10-325MG [Callery 1 tab PO Q6H 07/25/20 03/31/21 History 10-325] Metoprolol Tartrate [Lopressor] 25 mg PO DAILY 07/25/20 03/31/21 History Cranberry Fruit Extract [Cranberry] 500 mg PO HS 03/31/21 03/31/21 History Allergies Allergy/AdvReac Type Severity Reaction Status Date / Time beet AdvReac Nausea & Verified 03/31/21 14:39 Vomiting Physical Exam Vitals: Vital Signs Temp Pulse Pulse Resp BP BP Pulse Ox 03/31/21 19:30 98.2 F 55 L 20 122/88 98 03/31/21 18:01 97.9 F 67 18 137/63 97 03/31/21 15:15 54 L 18 127/73 96 03/31/21 13:14 62 20 161/67 99 Intake and Output 03/31/21 03/31/21 03/31/21 06:59 14:59 22:59 Other: Weight 90.718 kg Results CBC & Chem 7: 03/31/21 13:47 03/31/21 13:47 Labs: Abnormal Lab Results - Last 24 Hours (Table) 03/31/21 Range/Units 13:47 Glucose 108 H (74-99) mg/dL
[2021-04-01] MEDS: HYDROcodone/APAP 10-325MG 1 EACH TAB PO PRN ×2 (06:06→16:22)
[2021-04-01 07:33] LABS: Basophils % (A) 1 %; Eosinophils # (A) 0.1 k/uL (0-0.7); Eosinophils % (A) 2 %; HCT 34.1 % (34.0-46.0); HGB 11.2 gm/dL (11.4-16.0); Lymphocytes # (A) 1.2 k/uL (1.0-4.8); Lymphocytes % (A) 25 %; MCH 32.3 pg (25.0-35.0); MCHC 32.8 g/dL (31.0-37.0); MCV 98.5 fL (80.0-100.0); Mean Platelet Volume 8.9; Monocytes # (A) 0.4 k/uL (0-1.0); Monocytes % (A) 8 %; Neutrophils # (A) 2.8 k/uL (1.3-7.7); Neutrophils % (A) 62 %; Platelet Count 208 k/uL (150-450); RBC 3.46 m/uL (3.80-5.40); RDW 12.7 % (11.5-15.5); WBC 4.5 k/uL (3.8-10.6)
[2021-04-01] MEDS: CITALOPRAM HYDROBROMIDE 20 MG TAB PO SCH (08:42)
[2021-04-01] MEDS: METOPROLOL TARTRATE 12.5 MG TAB PO SCH ×2 (08:43→20:25)
[2021-04-01] MEDS ORDERED: METOPROLOL TARTRATE 25 MG TAB PO SCH (09:00)
[2021-04-01 11:39] LABS: Anion Gap 9.7 mmol/L (4.00-12.00); BUN/Creat Ratio 20.54 Ratio (12.00-20.00); Blood Urea Nitrogen 15.9 mg/dL (9.0-27.0); Calcium 8.5 mg/dL (8.7-10.3); Non-African American GFR(CKD) 75.1 (60.0-200.0); Potassium 4.2 mmol/L (3.5-5.5)
--- NOTE | 2021-04-01 12:56 | P.PN ---
Progress Note - Text Progress Note Date: 04/01/21 - Chief Complaint Right ankle fracture This is a pleasant 75-year-old patient follows with visiting physician Dr. Mitchell. Chronic stable medical conditions include mitral valve prolapse, osteoarthritis, urinary incontinence, chronic gait dysfunction does use a wheelchair/walker. Patient had lumbar surgery many years ago. Did well for many years. Subsequently started having problems progressed to the point that patient not able to really walk well. Because of pain medications patient also is chronic constipation. Patient suffered a fall yesterday and went to [facility]. Injury to the right ankle. Found to have a fracture. They put a splint. Patient came home. Significant pain. Not able to get off the toilet seat. Had to call of the EMS. Brought in here. Patient has no active cardiac symptoms. No chest pain or shortness of breath.. April 01: Reclining in bed. Pain in the right ankle reasonable. No nausea vomiting. Did eat a breakfast. Doesn't like hospital food. Review of systems: Was done for constitutional, cardiovascular, GI, pulmonary. relevant finding as above Active Medications Hydrocodone Bitart/Acetaminophen (Hydrocodone/Apap 10-325mg 1 Each Tab) 1 each PO Q6HR PRN PRN Reason: Pain Last Admin: 04/01/21 06:06 Dose: 1 each Documented by: Citalopram Hydrobromide (Citalopram Hydrobromide 20 Mg Tab) 20 mg PO DAILY COUNT INCLUDES THE [facility] Last Admin: 04/01/21 08:42 Dose: 20 mg Documented by: Metoprolol Tartrate (Metoprolol Tartrate 12.5 Mg Tab) 12.5 mg PO BID COUNT INCLUDES THE [facility] Last Admin: 04/01/21 08:43 Dose: 12.5 mg Documented by: Morphine Sulfate (Morphine Sulfate 4 Mg/Ml Syringe) 4 mg IV Q4HR PRN PRN Reason: Severe Pain Last Admin: 03/31/21 22:17 Dose: 4 mg Documented by: Naloxone HCl (Naloxone 0.4 Mg/Ml 1 Ml Vial) 0.2 mg IV Q2M PRN PRN Reason: Opioid Reversal Ropinirole HCl (Ropinirole Hcl 1 Mg Tab) 1 mg PO HS COUNT INCLUDES THE [facility] Last Admin: 03/31/21 21:25 Dose: 1 mg Documented by: Past medical history to include: Mitral valve prolapse, osteoarthritis, and urinary incontinence, Social history: Does use a wheelchair walker. No history of smoking or alcohol. Lives alone Physical examination: VITAL SIGNS: 98.6, 53, 16, 1 29 x 58, 95% room air GENERAL: Reclining in bed, awake, not in distress EYES: Pupils equal. Conjunctiva normal. HEENT: External appearance of nose and ears normal, oral cavity grossly normal. NECK: JVD not raised; masses not palpable. HEART: First and second heart sounds are normal; no edema. LUNGS: Respiratory rate normal; clear to auscultation. ABDOMEN: Soft, no tenderness, no guarding rigidity, liver spleen not palpable, no masses palpable. MUSCULAR skeletal: Evidence of OA. Right ankle in a dressing. PSYCH: Alert and oriented x3; mood and affect slightly anxiousl. NEUROLOGICAL: Cranial nerves grossly intact; no facial asymmetry, not able to lift the lower extremities off the bed.. INVESTIGATIONS, reviewed in the clinical context: April 01: White count 4.5 hemoglobin 11.2 platelets 208 potassium 4.2 creatinine 0.8 White count 5.6 hemoglobin 12.5 platelets 251 sodium 1:30 potassium 3.7 creatinine 0.5 for Coronavirus [PCR]: Not detected EKG tracing personally reviewed by me-normal sinus rhythm. Rate 55 Chest x-ray film personally reviewed by me-questionable right diaphragm elevation. No obvious infiltrate. X-ray ankle complete right: Displaced fracture distal fibula. Suspect displaced fracture medial margin distal tibia. Assessment and plan: -Right ankle fracture involving the possible distal tibia and fibula. Currently - Jitendra wrap support. According the patient tentative surgery being scheduled for Sunday. -Obesity BMI 33 .1. Weight loss measures and follow-up with PCP -Chronic Mitral valve prolapse. Asymptomatic Follow clinically -Primary osteoarthritis multiple joints Pain medicines as needed -Chronic urinary stress incontinence. Patient uses a pad. -Chronic gait dysfunction. At the baseline uses a wheelchair/walker. Fall precautions -Essential hypertension Lopressor -Restless leg syndrome Requip 1 mg daily at bedtime Patient has very limited excess tolerance. Has no active cardiac symptoms. No chest pain or shortness breath. Ankle surgery is a relatively less blood loss surgery. From a cardiovascular standpoint patient is a [id number] risk given her age. Patient is no active cardiopulmonary contraindications for surgery. patient is medically stable to proceed with surgery-discussed with patient. Thank you
[2021-04-01] MEDS: MORPHINE SULFATE 4 MG/ML SYRINGE IV PRN (14:52)
--- NOTE | 2021-04-01 15:18 | CT ---
EXAMINATION TYPE: CT ankle RT wo con DATE OF EXAM: 04/01/2021 COMPARISON: Right ankle x-ray from yesterday. HISTORY: Known right ankle fracture. Recent fall injury. TECHNIQUE: CT right ankle without contrast. FINDINGS: Overlying fiberglass cast material is present. Unga osseous structures are demineralized. There is acute comminuted slightly displaced fracture through the distal fibular diaphysis. There is additional comminuted fracture deformity without significant displacement distally involving the late ral malleolus at level of mortise axial Image 76 with adjacent moderate soft tissue swelling laterall y. A few tiny intra-articular ossific fracture fragments or ossific densities medial aspect of the di stal lateral malleolus are seen best on coronal image 46. There is oblique minimally displaced and intra-articular fracture through the medial malleolus more p rominent anteriorly extending into the ankle mortise seen best coronal images 36 through 45. There is a posterior linear extension on sagittal image 42 with tiny 4 mm ossific fragment involving the post erior malleolus sagittal image 40 and coronal image 51. Mild soft tissue swelling over the medial mal leolus. Ankle mortise symmetry is preserved. No intra-articular loose bodies clearly seen Incidental small to moderate size inferior calcaneal spur. Mild to moderate diffuse subcutaneous consuelo a is present. There is more focal fluid laterally hindfoot level with dermal-based thin-walled focal fluid collections posterior medially and slightly more prominent posterolaterally axial image 71 for reference. IMPRESSION: Trimalleolar fracture injury with medial mortise extension but no significant displacemen t or widening.
--- NOTE | 2021-04-01 15:57 | P.PN ---
Progress Note - Text Progress Note Date: 04/01/21 Subjective: Patient was seen at bedside today resting comfortable lying semirecumbent in bed with sterile posterior splint in place on right lower leg. Patient states she is feeling about the same as she was yesterday. She says her pain is under little bit better control with pain meds. She says she is ready for her ankle to be fixed. Patient denies increasing chest pain, stress breath, nausea, vomiting, change in vision, loss of bowel/bladder control. Exam: Right lower extremity: Patient was seen at bedside early today resting comfortably lying semirecumbent in bed. On right lower leg Posterior splint with lateral stirrups is in place with Jitendra wrap in good condition. Patient is able to move digits in right foot without difficulty. Patient has full/good sensation bilaterally in lower extremities digits of feet. Patient is nontender to palpation throughout the right knee and right upper leg. Cap refill is less than 3 seconds in digits toes. Patient has full range of motion bilateral upper extremities motor exam in bilateral upper extremities 4+/5 in all major motor groups. Assessment: Displaced right bimalleolar ankle fracture Status post fall from standing Other medical comorbidities Plan: 1. Displaced right bimalleolar ankle fracture - surgery scheduled for tomorrow, 04/02/2021 - ORIF right ankle. Patient to remain nothing by mouth after midnight tonight. CT of the right ankle has been ordered for further evaluation of the injury. 2. Appreciate medical management 3. Pain management - oral and IV pain meds 4. DVT prophylaxis / GI prophylaxis - mechanical 5. PT/OT - nonweightbearing right lower extremity
[2021-04-02] MEDS: MORPHINE SULFATE 4 MG/ML SYRINGE IV PRN ×2 (02:00→05:59)
[2021-04-02] MEDS ORDERED: HYDROmorphone 0.5 MG/0.5 ML SYRINGE IVP PRN (10:21)
[2021-04-02] MEDS ORDERED: NEOSTIGMINE 1 MG/ML 10 ML VIAL ONE (10:57)
[2021-04-02] MEDS ORDERED: SUCCINYLCHOLINE CHLORIDE 100 MG/5 ML SYR IV ONE (10:57)
[2021-04-02] MEDS ORDERED: ePHEDrine 50 MG/ML 1 ML AMP ONE (10:57)
[2021-04-02] MEDS ORDERED: MIDAZOLAM 2 MG/2 ML VIAL ONE (10:57)
[2021-04-02] MEDS ORDERED: LIDOCAINE 1% INJ 10MG/ML (20 ML MDV) ONE (10:57)
[2021-04-02] MEDS ORDERED: GLYCOPYRROLATE 0.2 MG/ML 2 ML VIAL ONE (10:57)
[2021-04-02] MEDS ORDERED: fentaNYL (PF) 50 MCG/ML 2 ML AMP ONE (10:57)
[2021-04-02] MEDS ORDERED: ROCURONIUM 10 MG/ML (5 ML VIAL) IV ONE (10:57)
[2021-04-02] MEDS ORDERED: PROPOFOL 10 MG/ML 20 ML VIAL IV ONE (10:57)
[2021-04-02] MEDS ORDERED: LACTATED RINGERS 1,000 ML IV ONE ×2 (11:02→12:24)
[2021-04-02] MEDS ORDERED: SODIUM CHLORIDE 0.9% 100 ML with ceFAZolin 2,000 MG IV ONE ×2 (11:16)
[2021-04-02] MEDS ORDERED: ceFAZolin 1,000 MG in SODIUM CHLORIDE 0.9% 1,000 ML IRRIGATION ONE (11:50)
[2021-04-02] MEDS ORDERED: BACITRACIN ZINC 500 UNIT/GM OINT 28.4 GM TUBE TOPICAL ONE (12:32)
[2021-04-02] MEDS ORDERED: HYDROmorphone 0.5 MG/0.5 ML SYRINGE IVP ONE ×3 (13:01→13:15)
--- NOTE | 2021-04-02 13:03 | P.OP ---
Date of Procedure: 04/02/21 Preoperative Diagnosis: Displaced right bimalleolar ankle fracture Postoperative Diagnosis: Same Procedure(s) Performed: Open reduction and internal fixation right bimalleolar ankle fracture Implants: Arthrex 7 hole one third tubular plate, 4.0 x 44 mm cannulated cancellous screws 2 Anesthesia: SHIVANI Surgeon: Clint Story Configuration Engineer #1: Hipolito Babcock Estimated Blood Loss (ml): 10 Pathology: none sent Condition: stable Disposition: PACU Indications for Procedure: The patient's a 75-year-old female presents after falling injuring her right ankle recently. Upon evaluation she was noted of evidence of a closed displaced right bimalleolar ankle fracture. A discussion of the risks and benefits of operative intervention was made with patient To proceed. Operative risks to include infection, neurovascular injury, development of blood clots, possible development of nonunion/malunion and need for subsequent procedures was discussed. Informed consent was obtained. Operative Findings: As below Description of Procedure: The patient was brought to the operating room, and after induction of general anesthesia and was positioned supine on the fracture table. Bony prominences were appropriately padded. The patient was noted to have fracture blistering, however this was not deemed interfere with the proposed incision sites. It was elected to proceed. The right lower extremity was prepped and draped in normal fashion. The tourniquet was inflated to 270 mmHg. Attention was first paid towards the lateral malleolar fracture. An 8 cm posterior lateral incision was made over the subcu border of the fibula. Skin was incised sharply. Subcu tissues were divided bluntly. Electrocautery was used for hemostasis. The fracture site was identified and cleaned of clot and debris. The periosteum was elevated to facilitate placement of the plate. The fracture was reduced with a reduction clamp. There was some comminution medially. A 7-hole one third tubular plate was then placed posterior lateral. It was attached proximally with 3.5 mm cortical screws the appropriate length. This was done with the aid of fluoroscopy. The distal most screw holes were filled with 4.0 mm cancellous screws the appropriate length. Is able to restore fibular length and overall alignment. Attention was then paid towards fixation of the medial malleolar fracture. A 4 cm medial incision was made centered over the medial malleolus. Skin was incised sharply. Subcu tissues were divided bluntly. The periosteum was elevated and the fracture site identified and cleaned of clot and debris. The medial talar dome was inspected. The anterior aspect the medial malleolus was quite comminuted. This was then provisionally held in place and reduced while placing 2 parallel K wires. This is done with the aid of fluoroscopy. A cannulated drill was used over both K wires. 4.0 x 44 mm partially threaded cannulated cancellus screws were inserted. Good purchase was obtained. Final fluoroscopic views showed adequate reduction of the medial lateral malleolar fractures as well as the ankle mortise. A cotton test was performed and the syndesmosis was deemed to be stable. The wounds were irrigated with normal saline. The subcu tissues reapproximated interrupted 2-0 Vicryl sutures. Skin was reapproximated with berto. A sterile dressing was applied in addition to a bulky splint. The tourniquet was deflated with approximately 65 minutes total tourniquet time. The patient was awoken from general anesthesia and transferred to recovery room in good condition. Blood loss was estimated at 10 mL. No complications were incurred. Sponge and needle counts were correct in the case. Juarez LEON assisted to the major components the case to include positi oning, exposure, reduction, implantation, and closure.
--- NOTE | 2021-04-02 13:14 | XR ---
EXAMINATION TYPE: XR ankle complete RT, FL guidance operating room DATE OF EXAM: 04/02/2021 COMPARISON: NONE HISTORY: 75-year-old female right ankle ORIF FINDINGS: Intraoperative fluoroscopy demonstrating sideplate and screw fixation distal fibular shaft and also m edial malleolus. FLUOROSCOPY Fluoroscopy time of 20 seconds was used during bimalleolar ankle fixations. 9 image/s document/s the procedure. IMPRESSION: Intraoperative fluoroscopy as above.
[2021-04-02] MEDS ORDERED: HYDROmorphone 0.5 MG/0.5 ML SYRINGE SQ ONE (13:25)
[2021-04-02] MEDS ORDERED: fentaNYL (PF) 50 MCG/ML 2 ML AMP IVP ONE (13:33)
[2021-04-02] MEDS: CITALOPRAM HYDROBROMIDE 20 MG TAB PO SCH (14:12)
[2021-04-02] MEDS: METOPROLOL TARTRATE 12.5 MG TAB PO SCH ×2 (14:12→20:00)
[2021-04-02] MEDS: HYDROmorphone 1 MG/ML 1 ML SYRINGE IVP PRN ×2 (15:42→21:20)
--- NOTE | 2021-04-02 15:59 | P.PN ---
Progress Note - Text Progress Note Date: 04/02/21 - Chief Complaint Right ankle fracture This is a pleasant 75-year-old patient follows with visiting physician Dr. Mitchell. Chronic stable medical conditions include mitral valve prolapse, osteoarthritis, urinary incontinence, chronic gait dysfunction does use a wheelchair/walker. Patient had lumbar surgery many years ago. Did well for many years. Subsequently started having problems progressed to the point that patient not able to really walk well. Because of pain medications patient also is chronic constipation. Patient suffered a fall yesterday and went to [facility]. Injury to the right ankle. Found to have a fracture. They put a splint. Patient came home. Significant pain. Not able to get off the toilet seat. Had to call of the EMS. Brought in here. Patient has no active cardiac symptoms. No chest pain or shortness of breath.. April 01: Reclining in bed. Pain in the right ankle reasonable. No nausea vomiting. Did eat a breakfast. Doesn't like hospital food. April 02: Patient underwent ORIF of the right ankle by Dr. Story. Some pain at the operative site. No nausea vomiting. Review of systems: Was done for constitutional, cardiovascular, GI, pulmonary. relevant finding as above Active Medications Hydrocodone Bitart/Acetaminophen (Hydrocodone/Apap 10-325mg 1 Each Tab) 1 each PO Q6HR PRN PRN Reason: Pain Last Admin: 04/01/21 16:22 Dose: 1 each Documented by: Citalopram Hydrobromide (Citalopram Hydrobromide 20 Mg Tab) 20 mg PO DAILY TASHI Last Admin: 04/02/21 14:12 Dose: 20 mg Documented by: Cyclobenzaprine HCl (Cyclobenzaprine 5 Mg Tab) 5 mg PO BID PRN PRN Reason: Muscle Spasm Heparin Sodium (Porcine) (Heparin Sodium,Porcine/Pf 5,000 Unit/0.5 Ml Syringe) 5,000 unit SQ Q12HR [facility] Hydromorphone HCl (Hydromorphone 0.5 Mg/0.5 Ml Syringe) 0.5 mg IVP Q3HR PRN PRN Reason: Pain Scale 4 to 6 Hydromorphone HCl (Hydromorphone 1 Mg/Ml 1 Ml Syringe) 1 mg IVP Q3H PRN PRN Reason: Pain Scale 6 to 10 Last Admin: 04/02/21 15:42 Dose: 1 mg Documented by: Cefazolin Sodium 2 gm/ Sodium (Chloride) 50 mls @ 100 mls/hr IVPB Q8H [facility] Stop: 04/03/21 04:29 Last Admin: 04/02/21 14:11 Dose: Not Given Documented by: Meloxicam (Meloxicam 7.5 Mg Tab) 15 mg PO DAILY [facility] Metoprolol Tartrate (Metoprolol Tartrate 12.5 Mg Tab) 12.5 mg PO BID [facility] Last Admin: 04/02/21 14:12 Dose: 12.5 mg Documented by: Naloxone HCl (Naloxone 0.4 Mg/Ml 1 Ml Vial) 0.2 mg IV Q2M PRN PRN Reason: Opioid Reversal Ropinirole HCl (Ropinirole Hcl 1 Mg Tab) 1 mg PO HS [facility] Last Admin: 04/01/21 20:25 Dose: 1 mg Documented by: Past medical history to include: Mitral valve prolapse, osteoarthritis, and urinary incontinence, Social history: Does use a wheelchair walker. No history of smoking or alcohol. Lives alone Physical examination: VITAL SIGNS: 97.2, 61, 16, 143.61, 97% on 8 L GENERAL: Reclining in bed, awake, not in distress EYES: Pupils equal. Conjunctiva normal. NECK: JVD not raised; masses not palpable. HEART: First and second heart sounds are normal; no edema. LUNGS: Respiratory rate normal; clear to auscultation. ABDOMEN: Soft, no tenderness, no guarding rigidity, liver spleen not palpable, no masses palpable. MUSCULAR skeletal: Evidence of OA. Right ankle in a dressing. PSYCH: Alert and oriented x3; mood and affect slightly anxiousl. NEUROLOGICAL: Cranial nerves grossly intact; no facial asymmetry, not able to lift the lower extremities off the bed.. INVESTIGATIONS, reviewed in the clinical context: April 01: White count 4.5 hemoglobin 11.2 platelets 208 potassium 4.2 creatinine 0.8 White count 5.6 hemoglobin 12.5 platelets 251 sodium 1:30 potassium 3.7 creatinine 0.5 for Coronavirus [PCR]: Not detected EKG tracing personally reviewed by me-normal sinus rhythm. Rate 55 Chest x-ray film personally reviewed by me-questionable right diaphragm elevation. No obvious infiltrate. X-ray ankle complete right: Displaced fracture distal fibula. Suspect displaced fracture medial margin distal tibia. Assessment and plan: -Right ankle fracture involving the possible distal tibia and fibula. ORIF by Dr. Story on April 02 -Obesity BMI 33 .1. Weight loss measures and follow-up with PCP -Chronic Mitral valve prolapse. Asymptomatic Follow clinically -Primary osteoarthritis multiple joints Pain medicines as needed -Chronic urinary stress incontinence. Patient uses a pad. -Chronic gait dysfunction. At the baseline uses a wheelchair/walker. Fall precautions -Essential hypertension Lopressor 12.5 by mouth twice a day -Restless leg syndrome Requip 1 mg daily at bedtime Discussed with the patient. Continue current medication treatment plan. Activity per orthopedic Thank you
[2021-04-02] MEDS ORDERED: LACTULOSE 20 GM/30 ML CUP PO ONE (19:52)
[2021-04-02] MEDS: CYCLOBENZAPRINE 5 MG TAB PO PRN (23:40)
[2021-04-02] MEDS: HYDROcodone/APAP 10-325MG 1 EACH TAB PO PRN (23:40)
[2021-04-03] MEDS: HYDROmorphone 1 MG/ML 1 ML SYRINGE IVP PRN ×2 (03:36→12:57)
[2021-04-03 07:58] LABS: Basophils % (A) 1 %; Eosinophils # (A) 0.1 k/uL (0-0.7); Eosinophils % (A) 2 %; HCT 34.7 % (34.0-46.0); HGB 11.4 gm/dL (11.4-16.0); Lymphocytes % (A) 20 %; MCH 32.3 pg (25.0-35.0); Monocytes # (A) 0.4 k/uL (0-1.0); Monocytes % (A) 8 %; Neutrophils # (A) 3.3 k/uL (1.3-7.7); Neutrophils % (A) 68 %; Platelet Count 233 k/uL (150-450); RBC 3.54 m/uL (3.80-5.40); RDW 12.6 % (11.5-15.5); WBC 4.8 k/uL (3.8-10.6)
[2021-04-03] MEDS: HEPARIN SODIUM,PORCINE/PF 5,000 UNIT/0.5 ML SYRINGE SQ SCH ×2 (08:49→20:06)
[2021-04-03] MEDS: MELOXICAM 7.5 MG TAB PO SCH (08:49)
[2021-04-03] MEDS: HYDROcodone/APAP 10-325MG 1 EACH TAB PO PRN ×2 (08:50→20:06)
[2021-04-03] MEDS: METOPROLOL TARTRATE 12.5 MG TAB PO SCH ×2 (08:50→20:06)
[2021-04-03] MEDS: CITALOPRAM HYDROBROMIDE 20 MG TAB PO SCH (08:50)
--- NOTE | 2021-04-03 10:49 | P.PN ---
Subjective Progress Note Date: 04/03/21 Principal diagnosis: Status post ORIF right bimalleolar ankle fracture Patient evaluated at bedside, she is resting in her hospital bed. She states she is having some generalized discomfort and spasming in the right ankle. Patient remains on oral [place], IV pain medication as needed along with Flexeril. Continue with his current medications at this time. Patient was retaining urine, urinary catheter was placed last night. Nursing also mentioned patient has not had a bowel movement in many days, medications have been adjusted. Currently she denies any headaches, lightheadedness, chest pain or shortness of breath. Objective - Vital Signs Vital signs: Vital Signs Temp 99.7 F H 04/03/21 03:43 Pulse 66 04/03/21 08:53 Resp 18 04/03/21 03:43 BP 146/81 04/03/21 08:53 Pulse Ox 94 L 04/03/21 03:43 Intake & Output 04/02/21 04/03/21 04/03/21 18:59 06:59 18:59 Intake Total 1201 600 Output Total 535 900 Balance 666 -300 Weight 90.718 kg Intake: IV 1201 Intake, IV Titration 100 Amount ceFAZolin 2 gm In Sodium 100 Chloride 0.9% 50 ml @ 100 mls/hr IVPB Q8H [facility] Rx#: [id number] Oral 500 Output: Urine 525 900 Straight 900 Estimated Blood Loss 10 Other: Voiding Method External Catheter External Catheter # Voids 0 - Exam Right lower extremity: Postoperative splint is in good position and condition with Jitendra bandage fixation, there is no obvious saturation present She is able wiggle the toes no difficulty, cap refill is less than 2 seconds Sensation to light touch both proximal distal to the splinter intact - Labs CBC & Chem 7: 04/03/21 07:36 04/01/21 06:52 Labs: Abnormal Lab Results - Last 24 Hours (Table) 04/03/21 Range/Units 07:36 RBC 3.54 L (3.80-5.40) m/uL Assessment and Plan Assessment: Postoperative day #1 status post ORIF right bimalleolar ankle fracture Status post fall from standing Other medical comorbidities Plan: Pain control, continue with current medications GI and DVT prophylaxis, continue current medications Nonweightbearing right lower extremity, ice and elevate often Discussed with patient that she needs to attend to get out of bed, we have multiple people available for assistance to aid in her nonweightbearing status. Prefer out of bed for all meals Medical recommendations PT/OT evaluation after surgery Discharge planning: We'll be in discussion with social work and case management with regards to rehab placement. Patient would benefit from permanent halfway placement. Time with Patient: Less than 30
--- NOTE | 2021-04-03 11:53 | P.PN ---
Progress Note - Text Progress Note Date: 04/03/21 - Chief Complaint Right ankle fracture This is a pleasant 75-year-old patient follows with visiting physician Dr. Mitchell. Chronic stable medical conditions include mitral valve prolapse, osteoarthritis, urinary incontinence, chronic gait dysfunction does use a wheelchair/walker. Patient had lumbar surgery many years ago. Did well for many years. Subsequently started having problems progressed to the point that patient not able to really walk well. Because of pain medications patient also is chronic constipation. Patient suffered a fall yesterday and went to [facility]. Injury to the right ankle. Found to have a fracture. They put a splint. Patient came home. Significant pain. Not able to get off the toilet seat. Had to call of the EMS. Brought in here. Patient has no active cardiac symptoms. No chest pain or shortness of breath.. April 01: Reclining in bed. Pain in the right ankle reasonable. No nausea vomiting. Did eat a breakfast. Doesn't like hospital food. April 02: Patient underwent ORIF of the right ankle by Dr. Story. Some pain at the operative site. No nausea vomiting. April 03: Pain control. Laying in bed. Not very keen about hospital food. No nausea vomiting. Review of systems: Was done for constitutional, cardiovascular, GI, pulmonary. relevant finding as above Active Medications Hydrocodone Bitart/Acetaminophen (Hydrocodone/Apap 10-325mg 1 Each Tab) 1 each PO Q6HR PRN PRN Reason: Pain Last Admin: 04/03/21 08:50 Dose: 1 each Documented by: Citalopram Hydrobromide (Citalopram Hydrobromide 20 Mg Tab) 20 mg PO DAILY [facility] Last Admin: 04/03/21 08:50 Dose: 20 mg Documented by: Cyclobenzaprine HCl (Cyclobenzaprine 5 Mg Tab) 5 mg PO BID PRN PRN Reason: Muscle Spasm Last Admin: 04/02/21 23:40 Dose: 5 mg Documented by: Docusate Sodium (Docusate 100 Mg Cap) 100 mg PO DAILY [facility] Heparin Sodium (Porcine) (Heparin Sodium,Porcine/Pf 5,000 Unit/0.5 Ml Syringe) 5,000 unit SQ Q12HR [facility] Last Admin: 04/03/21 08:49 Dose: 5,000 unit Documented by: Hydromorphone HCl (Hydromorphone 0.5 Mg/0.5 Ml Syringe) 0.5 mg IVP Q3HR PRN PRN Reason: Pain Scale 4 to 6 Hydromorphone HCl (Hydromorphone 1 Mg/Ml 1 Ml Syringe) 1 mg IVP Q3H PRN PRN Reason: Pain Scale 6 to 10 Last Admin: 04/03/21 03:36 Dose: 1 mg Documented by: Lactulose (Lactulose 20 Gm/30 Ml Cup) 20 gm PO DAILY [facility] Meloxicam (Meloxicam 7.5 Mg Tab) 15 mg PO DAILY [facility] Last Admin: 04/03/21 08:49 Dose: 15 mg Documented by: Metoprolol Tartrate (Metoprolol Tartrate 12.5 Mg Tab) 12.5 mg PO BID [facility] Last Admin: 04/03/21 08:50 Dose: 12.5 mg Documented by: Naloxone HCl (Naloxone 0.4 Mg/Ml 1 Ml Vial) 0.2 mg IV Q2M PRN PRN Reason: Opioid Reversal Polyethylene Glycol (Polyethylene Glycol 3350 17 Gm Powd.Pack) 17 gm PO DAILY [facility] Ropinirole HCl (Ropinirole Hcl 1 Mg Tab) 1 mg PO HS [facility] Last Admin: 04/02/21 20:00 Dose: 1 mg Documented by: Past medical history to include: Mitral valve prolapse, osteoarthritis, and urinary incontinence, Social history: Does use a wheelchair walker. No history of smoking or alcohol. Lives alone Physical examination: VITAL SIGNS: 99.7, 75, 18, 1 46/81, 94% room air GENERAL: Reclining in bed, awake, not in distress EYES: Pupils equal. Conjunctiva normal. NECK: JVD not raised; masses not palpable. HEART: First and second heart sounds are normal; no edema. LUNGS: Respiratory rate normal; clear to auscultation. ABDOMEN: Soft, no tenderness, no guarding rigidity, liver spleen not palpable, no masses palpable. MUSCULAR skeletal: Evidence of OA. Right ankle in a dressing. PSYCH: Alert and oriented x3; mood and affect slightly anxiousl. NEUROLOGICAL: Cranial nerves grossly intact; no facial asymmetry, not able to lift the lower extremities off the bed.. INVESTIGATIONS, reviewed in the clinical context: April 03: White count 4.8 hemoglobin 11.4 platelets 233 April 01: White count 4.5 hemoglobin 11.2 platelets 208 potassium 4.2 creatinine 0.8 White count 5.6 hemoglobin 12.5 platelets 251 sodium 1:30 potassium 3.7 creatinine 0.5 for Coronavirus [PCR]: Not detected EKG tracing personally reviewed by me-normal sinus rhythm. Rate 55 Chest x-ray film personally reviewed by me-questionable right diaphragm elevati on. No obvious infiltrate. X-ray ankle complete right: Displaced fracture distal fibula. Suspect displaced fracture medial margin distal tibia. Assessment and plan: -Right ankle fracture involving the distal tibia and fibula. ORIF by Dr. Story on April 02 -Obesity BMI 33 .1. Weight loss measures and follow-up with PCP -Chronic Mitral valve prolapse. Asymptomatic Follow clinically -Primary osteoarthritis multiple joints Pain medicines as needed -Chronic urinary stress incontinence. Patient uses a pad. -Chronic gait dysfunction. At the baseline uses a wheelchair/walker. Fall precautions -Essential hypertension Lopressor 12.5 by mouth twice a day -Restless leg syndrome Requip 1 mg daily at bedtime Discussed with the patient. Continue current medication treatment plan. Thank you
[2021-04-03] MEDS: polyethylene glycoL 3350 17 GM POWD.PACK PO SCH (12:46)
[2021-04-03] MEDS: LACTULOSE 20 GM/30 ML CUP PO SCH (12:46)
[2021-04-03] MEDS: CYCLOBENZAPRINE 5 MG TAB PO PRN (12:46)
[2021-04-03] MEDS: DOCUSATE 100 MG CAP PO SCH (12:46)
[2021-04-04] MEDS: CYCLOBENZAPRINE 5 MG TAB PO PRN ×2 (04:32→20:37)
[2021-04-04] MEDS: HYDROmorphone 1 MG/ML 1 ML SYRINGE IVP PRN ×2 (05:46→12:22)
[2021-04-04] MEDS: CITALOPRAM HYDROBROMIDE 20 MG TAB PO SCH (07:59)
[2021-04-04] MEDS: HEPARIN SODIUM,PORCINE/PF 5,000 UNIT/0.5 ML SYRINGE SQ SCH ×2 (07:59→22:24)
[2021-04-04] MEDS: LACTULOSE 20 GM/30 ML CUP PO SCH (07:59)
[2021-04-04] MEDS: polyethylene glycoL 3350 17 GM POWD.PACK PO SCH (07:59)
[2021-04-04] MEDS: METOPROLOL TARTRATE 12.5 MG TAB PO SCH ×2 (08:00→22:25)
[2021-04-04] MEDS: MELOXICAM 7.5 MG TAB PO SCH (08:00)
[2021-04-04] MEDS: DOCUSATE 100 MG CAP PO SCH (08:00)
--- NOTE | 2021-04-04 10:21 | P.PN ---
Subjective Progress Note Date: 04/04/21 Principal diagnosis: Status post ORIF right bimalleolar ankle fracture Patient evaluated at bedside, she is resting in her hospital bed. Patient is having generalized discomfort in the ankle. There is notable saturation present throughout most of the postoperative splint. Patient is moving around a lot in bed, she states that she has spasms in her leg which are chronic. Currently she denies any headaches, lightheadedness, chest pain or shortness of breath. Objective - Vital Signs Vital signs: Vital Signs Temp 98.3 F 04/04/21 04:34 Pulse 67 04/04/21 08:02 Resp 18 04/04/21 04:34 BP 156/82 04/04/21 08:02 Pulse Ox 96 04/04/21 04:34 Intake & Output 04/03/21 04/04/21 04/04/21 18:59 06:59 18:59 Intake Total 600 Output Total 1000 600 Balance -1000 0 Intake: Oral 600 Output: Urine 1000 600 Other: Voiding Method Indwelling Catheter Indwelling Catheter Indwelling Catheter - Exam Right lower extremity: Postoperative splint is clearly saturated throughout, patient's foot is moving around quite a bit in the splint She is able wiggle the toes no difficulty, cap refill is less than 2 seconds Sensation to light touch both proximal distal to the splint are intact - Labs CBC & Chem 7: 04/03/21 07:36 04/01/21 06:52 Assessment and Plan Assessment: Postoperative day #2 status post ORIF right bimalleolar ankle fracture Status post fall from standing Other medical comorbidities Plan: Plan for removing and replacement of the postoperative splint later today Pain control, continue with current medications GI and DVT prophylaxis, continue current medications Nonweightbearing right lower extremity, ice and elevate often Discussed with patient that she needs to attend to get out of bed, we have multiple people available for assistance to aid in her nonweightbearing status. Prefer out of bed for all meals Medical recommendations PT/OT evaluation after surgery Discharge planning: We'll be in discussion with social work and case management with regards to rehab placement. Patient would benefit from permanent [facility] placement. Time with Patient: Less than 30
[2021-04-04] MEDS: HYDROcodone/APAP 10-325MG 1 EACH TAB PO PRN ×2 (11:59→20:23)
--- NOTE | 2021-04-04 16:41 | P.PN ---
Progress Note - Text Progress Note Date: 04/04/21 - Chief Complaint Right ankle fracture This is a pleasant 75-year-old patient follows with visiting physician Dr. Mitchell. Chronic stable medical conditions include mitral valve prolapse, osteoarthritis, urinary incontinence, chronic gait dysfunction does use a wheelchair/walker. Patient had lumbar surgery many years ago. Did well for many years. Subsequently started having problems progressed to the point that patient not able to really walk well. Because of pain medications patient also is chronic constipation. Patient suffered a fall yesterday and went to [facility]. Injury to the right ankle. Found to have a fracture. They put a splint. Patient came home. Significant pain. Not able to get off the toilet seat. Had to call of the EMS. Brought in here. Patient has no active cardiac symptoms. No chest pain or shortness of breath.. April 01: Reclining in bed. Pain in the right ankle reasonable. No nausea vomiting. Did eat a breakfast. Doesn't like hospital food. April 02: Patient underwent ORIF of the right ankle by Dr. Story. Some pain at the operative site. No nausea vomiting. April 03: Pain control. Laying in bed. Not very keen about hospital food. No nausea vomiting. April 04: Patient dressing change on the right operative 4. By orthopedics. There was soaking of the dressing. Looking at patient going to [facility] rehab. Eating fair. Review of systems: Was done for constitutional, cardiovascular, GI, pulmonary. relevant finding as above Active Medications Hydrocodone Bitart/Acetaminophen (Hydrocodone/Apap 10-325mg 1 Each Tab) 1 each PO Q6HR PRN PRN Reason: Pain Last Admin: 04/04/21 11:59 Dose: 1 each Documented by: Citalopram Hydrobromide (Citalopram Hydrobromide 20 Mg Tab) 20 mg PO DAILY [facility] Last Admin: 04/04/21 07:59 Dose: 20 mg Documented by: Cyclobenzaprine HCl (Cyclobenzaprine 5 Mg Tab) 5 mg PO BID PRN PRN Reason: Muscle Spasm Last Admin: 04/04/21 04:32 Dose: 5 mg Documented by: Docusate Sodium (Docusate 100 Mg Cap) 100 mg PO DAILY [facility] Last Admin: 04/04/21 08:00 Dose: 100 mg Documented by: Heparin Sodium (Porcine) (Heparin Sodium,Porcine/Pf 5,000 Unit/0.5 Ml Syringe) 5,000 unit SQ Q12HR [facility] Last Admin: 04/04/21 07:59 Dose: 5,000 unit Documented by: Hydromorphone HCl (Hydromorphone 0.5 Mg/0.5 Ml Syringe) 0.5 mg IVP Q3HR PRN PRN Reason: Pain Scale 4 to 6 Hydromorphone HCl (Hydromorphone 1 Mg/Ml 1 Ml Syringe) 1 mg IVP Q3H PRN PRN Reason: Pain Scale 6 to 10 Last Admin: 04/04/21 12:22 Dose: 1 mg Documented by: Lactulose (Lactulose 20 Gm/30 Ml Cup) 20 gm PO DAILY [facility] Last Admin: 04/04/21 07:59 Dose: 20 gm Documented by: Meloxicam (Meloxicam 7.5 Mg Tab) 15 mg PO DAILY [facility] Last Admin: 04/04/21 08:00 Dose: 15 mg Documented by: Metoprolol Tartrate (Metoprolol Tartrate 12.5 Mg Tab) 12.5 mg PO BID [facility] Last Admin: 04/04/21 08:00 Dose: 12.5 mg Documented by: Naloxone HCl (Naloxone 0.4 Mg/Ml 1 Ml Vial) 0.2 mg IV Q2M PRN PRN Reason: Opioid Reversal Polyethylene Glycol (Polyethylene Glycol 3350 17 Gm Powd.Pack) 17 gm PO DAILY [facility] Last Admin: 04/04/21 07:59 Dose: 17 gm Documented by: Ropinirole HCl (Ropinirole Hcl 1 Mg Tab) 1 mg PO HS [facility] Last Admin: 04/03/21 20:06 Dose: 1 mg Documented by: Past medical history to include: Mitral valve prolapse, osteoarthritis, and urinary incontinence, Social history: Does use a wheelchair walker. No history of smoking or alcohol. Lives alone Physical examination: VITAL SIGNS: 98.2, 58, 16, 160/72, 93% room air GENERAL: Reclining in bed, awake, not in distress EYES: Pupils equal. Conjunctiva normal. NECK: JVD not raised; masses not palpable. HEART: First and second heart sounds are normal; no edema. LUNGS: Respiratory rate normal; clear to auscultation. ABDOMEN: Soft, no tenderness, no guarding rigidity, liver spleen not palpable, no masses palpable. MUSCULAR skeletal: Evidence of OA. Right ankle in a dressing. PSYCH: Alert and oriented x3; mood and affect normal. INVESTIGATIONS, reviewed in the clinical context: April 03: White count 4.8 hemoglobin 11.4 platelets 233 April 01: White count 4.5 hemoglobin 11.2 platelets 208 potassium 4.2 creatinine 0.8 White count 5.6 hemoglobin 12.5 platelets 251 sodium 1:30 potassium 3.7 creatinine 0.5 for Coronavirus [PCR]: Not detected EKG tracing personally reviewed by me-normal sinus rhythm. Rate 55 Chest x-ray film personally reviewed by me-questionable right diaphragm elevation. No obvious infiltrate. X-ray ankle complete right: Displaced fracture distal fibula. Suspect displaced fracture medial margin distal tibia. Assessment and plan: -Right ankle fracture involving the distal tibia and fibula. ORIF by Dr. Story on April 02. Dressing changes per orthopedic. -Obesity BMI 33 .1. Weight loss measures and follow-up with PCP -Chronic Mitral valve prolapse. Asymptomatic Follow clinically -Primary osteoarthritis multiple joints Pain medicines as needed -Chronic urinary stress incontinence. Patient uses a pad. -Chronic gait dysfunction. At the baseline uses a wheelchair/walker. Fall precautions -Essential hypertension Lopressor 12.5 by mouth twice a day. Add lisinopril hydrochlorothiazide 10/12.5 daily at bedtime -Restless leg syndrome Requip 1 mg daily at bedtime Dressing changes protocol. Discussed with the patient. Add lisinopril hydrochlorothiazide 10/12.5 daily at bedtime. Looking at going to [facility] rehab. Thank you
[2021-04-04] MEDS: LISINOPRIL-HCTZ 10-12.5 MG 1 EACH TAB PO SCH (22:24)
[2021-04-05] MEDS: HYDROcodone/APAP 10-325MG 1 EACH TAB PO PRN ×3 (05:03→19:44)
[2021-04-05 06:01] LABS: Basophils % (A) 0 %; Eosinophils % (A) 0 %; HCT 37.1 % (34.0-46.0); HGB 11.9 gm/dL (11.4-16.0); Lymphocytes # (A) 0.7 k/uL (1.0-4.8); Lymphocytes % (A) 10 %; MCH 31.4 pg (25.0-35.0); MCHC 32.1 g/dL (31.0-37.0); MCV 97.7 fL (80.0-100.0); Mean Platelet Volume 8.9; Monocytes # (A) 0.2 k/uL (0-1.0); Monocytes % (A) 3 %; Neutrophils # (A) 6.5 k/uL (1.3-7.7); Neutrophils % (A) 85 %; Platelet Count 280 k/uL (150-450); RDW 12.6 % (11.5-15.5); WBC 7.6 k/uL (3.8-10.6)
[2021-04-05] MEDS: HEPARIN SODIUM,PORCINE/PF 5,000 UNIT/0.5 ML SYRINGE SQ SCH ×2 (08:20→21:46)
[2021-04-05] MEDS: DOCUSATE 100 MG CAP PO SCH (08:20)
[2021-04-05] MEDS: CITALOPRAM HYDROBROMIDE 20 MG TAB PO SCH (08:20)
[2021-04-05] MEDS: LACTULOSE 20 GM/30 ML CUP PO SCH (08:20)
[2021-04-05] MEDS: polyethylene glycoL 3350 17 GM POWD.PACK PO SCH (08:20)
[2021-04-05] MEDS: MELOXICAM 7.5 MG TAB PO SCH (08:20)
[2021-04-05] MEDS: METOPROLOL TARTRATE 12.5 MG TAB PO SCH ×2 (08:20→21:46)
--- NOTE | 2021-04-05 09:16 | P.PN ---
Subjective Progress Note Date: 04/05/21 Principal diagnosis: Status post ORIF right bimalleolar ankle fracture Patient evaluated at bedside, she is resting in her hospital bed. No acute changes overnight, postoperative splint remains in good position and condition. Currently she denies any headaches, lightheadedness, chest pain or shortness of breath. Objective - Vital Signs Vital signs: Vital Signs Temp 98.8 F 04/05/21 05:00 Pulse 69 04/05/21 05:00 Resp 18 04/05/21 05:00 BP 172/76 04/05/21 05:00 Pulse Ox 95 04/05/21 05:00 Intake & Output 04/04/21 04/05/21 04/05/21 18:59 06:59 18:59 Output Total 800 Balance -800 Output: Urine 800 Other: Voiding Method Indwelling Catheter Indwelling Catheter # Bowel Movements 0 - Exam Right lower extremity: Postoperative splint is in good position and condition, no obvious saturation present She is able wiggle the toes no difficulty, cap refill is less than 2 seconds Sensation to light touch both proximal distal to the splint are intact - Labs CBC & Chem 7: 04/05/21 05:18 04/01/21 06:52 Labs: Abnormal Lab Results - Last 24 Hours (Table) 04/05/21 Range/Units 05:18 Lymphocytes # 0.7 L (1.0-4.8) k/uL Assessment and Plan Assessment: Postoperative day #3 status post ORIF right bimalleolar ankle fracture Status post fall from standing Other medical comorbidities Plan: Discussed with nursing at bedside today, Garzon catheter will be removed for voiding trial Pain control, patient will continue her [place] 10 mg/325 mg, plan for discharge also with Flexeril 5 mg twice a day as needed for spasms GI and DVT prophylaxis, plan for heparin 5000 units every 12 hours 30 days Nonweightbearing right lower extremity, ice and elevate often Medical recommendations PT/OT evaluation after surgery Discharge planning: Orthopedically patient remains stable for discharge, possible discharged to rehab today. We'll reassess later this afternoon. Time with Patient: Less than 30
--- NOTE | 2021-04-05 13:30 | P.PN ---
Subjective This is a pleasant 75 years old female with past medical history of mitral valve prolapse, osteoarthritis and back surgery, presents because of fall and left ankle fracture. 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 She denies any dizziness or syncope. No chest pain or dyspnea. No abdominal pain or nausea vomiting or diarrhea. No dysuria or urinary symptoms. She has total tract of bulbous is . Today her Garzon catheter was discontinued by the primary team. Discussed with the bedside nurse to check her bladder scan. Especially postvoid residual. Also blood pressure was elevated today 172/76. She is on metoprolol 12.5 twice a day he has a home dose. Dr. Child added lisinopril/hydrochlorothiazide 10- 12.5 mg yesterday and she got a dose last night. Her blood pressure is still elevated. so Added Norvasc 5 mg daily She had low-grade temperature yesterday 99.7 most likely secondary to her fracture, no other episodes of fever. No leukocytosis. No need for antibiotic now and while keep monitoring closely. Antibiotics will have more risk and howard efits currently. Objective - Vital Signs Vital signs: Vital Signs Temp 98.8 F 04/05/21 05:00 Pulse 69 04/05/21 05:00 Resp 18 04/05/21 05:00 BP 172/76 04/05/21 05:00 Pulse Ox 95 04/05/21 05:00 Intake & Output 04/04/21 04/05/21 04/05/21 18:59 06:59 18:59 Output Total 800 500 Balance -800 -500 Output: Urine 800 500 Uretheral (Garzon) 500 Other: Voiding Method Indwelling Catheter Indwelling Catheter Indwelling Catheter # Bowel Movements 0 - Exam GENERAL: The patient is alert and oriented x3, not in any acute distress. Well developed, well nourished. HEENT: Pupils are round and equally reacting to light. EOMI. No scleral icterus. No conjunctival pallor. Normocephalic, atraumatic. No pharyngeal erythema. No thyromegaly. CARDIOVASCULAR: S1 and S2 present. No murmurs, rubs, or gallops. PULMONARY: Chest is clear to auscultation, no wheezing or crackles. ABDOMEN: Soft, nontender, nondistended, normoactive bowel sounds. No palpable organomegaly. MUSCULOSKELETAL: No joint swelling or deformity. -EXTREMITIES: No cyanosis, clubbing, or pedal edema. Right ankle is in cast and dressing, rest of exam deferred to surgery primary team NEUROLOGICAL: Gross neurological examination did not reveal any focal deficits. SKIN: No rashes. no petechiae. - Labs CBC & Chem 7: 04/05/21 05:18 04/01/21 06:52 Labs: Abnormal Lab Results - Last 24 Hours (Table) 04/05/21 Range/Units 05:18 Lymphocytes # 0.7 L (1.0-4.8) k/uL Assessment and Plan Assessment: A fall down stairs without losing consciousness during leaving her office appointment Right ankle fracture status post ORIF on 04/02 Uncontrolled hypertension History of osteoarthritis Plan: This is a pleasant 75 years old female who presents with fall and right ankle fracture status post ORIF And Norvasc to her blood pressure medication regimen of metoprolol, lisinopril/hydrochlorothiazide deep monitor and blood pressure closely Continue with postop management including pain management and DVT prophylaxis as per orthopedic primary team No need for antibiotics and keep monitoring if she develops more fever or le ukocytosis Her Garzon catheter was discontinued today. Keep monitoring post void residual. Bladder scan ordered. Discussed with the bedside nurse Labs and medication were reviewed.. Continue same treatment. Continue with symptomatic treatment. Resume home medication. Monitor lytes and vitals. DVT and GI prophylaxis. Further recommendationsas per clinical course of the patient PT/OT: Patient may from rehab, Thank you for consulting us
[2021-04-05] MEDS: amLODIPine 5 MG TAB PO SCH (13:54)
[2021-04-05] MEDS: HYDROmorphone 1 MG/ML 1 ML SYRINGE IVP PRN (20:21)
[2021-04-05] MEDS: LISINOPRIL-HCTZ 10-12.5 MG 1 EACH TAB PO SCH (21:46)
[2021-04-06 04:29] VITALS: RESP 16
[2021-04-06] MEDS: HYDROcodone/APAP 10-325MG 1 EACH TAB PO PRN ×2 (05:30→11:26)
[2021-04-06] MEDS: HYDROmorphone 1 MG/ML 1 ML SYRINGE IVP PRN (05:57)
[2021-04-06 08:25] VITALS: BMI 33.3
--- NOTE | 2021-04-06 09:43 | P.PN ---
Subjective Progress Note Date: 04/06/21 Principal diagnosis: Status post ORIF right bimalleolar ankle fracture, constipation, urinary retention Patient evaluated at bedside, she is resting in her hospital bed. No acute changes overnight, postoperative splint remains in good position and condition. Patient did require straight catheterization yesterday, she is also very constipated at this time. Currently she denies any headaches, lightheadedness, chest pain or shortness of breath. Objective - Vital Signs Vital signs: Vital Signs Temp 98.9 F 04/06/21 04:29 Pulse 59 L 04/06/21 04:29 Resp 16 04/06/21 04:29 BP 157/72 04/06/21 04:29 Pulse Ox 94 L 04/06/21 04:29 Intake & Output 04/05/21 04/06/21 04/06/21 18:59 06:59 18:59 Intake Total 480 Output Total 852 300 Balance -372 -300 Weight 90.718 kg Intake: Oral 480 Output: Urine 500 300 Uretheral (Garzon) 500 Post Void Residual 352 Other: Voiding Method Indwelling Catheter - Exam Right lower extremity: Postoperative splint is in good position and condition, no obvious saturation present She is able wiggle the toes no difficulty, cap refill is less than 2 seconds Sensation to light touch both proximal distal to the splint are intact - Labs CBC & Chem 7: 04/05/21 05:18 04/01/21 06:52 Assessment and Plan Assessment: Postoperative day #4 status post ORIF right bimalleolar ankle fracture Status post fall from standing Urinary retention Constipation Other medical comorbidities Plan: Discussed with nursing today at bedside, if patient is not discharged to rehab today that the primary admission will be changed to internal medicine. Patient remains severely constipated, and she did require straight catheterization for urinary retention. Both of these are being assessed by internal medicine. Pain control, continue with current medication, paper prescription in place in chart for discharge. GI and DVT prophylaxis, plan for heparin 5000 units every 12 hours 30 days Nonweightbearing right lower extremity, ice and elevate often Medical recommendations PT/OT evaluation after surgery Discharge planning: Orthopedically patient remains stable for discharge to read Time with Patient: Less than 30
[2021-04-06] MEDS: LACTULOSE 20 GM/30 ML CUP PO SCH (11:23)
[2021-04-06] MEDS: HEPARIN SODIUM,PORCINE/PF 5,000 UNIT/0.5 ML SYRINGE SQ SCH (11:23)
[2021-04-06] MEDS: CITALOPRAM HYDROBROMIDE 20 MG TAB PO SCH (11:23)
[2021-04-06] MEDS: DOCUSATE 100 MG CAP PO SCH (11:23)
[2021-04-06] MEDS: METOPROLOL TARTRATE 12.5 MG TAB PO SCH (11:23)
[2021-04-06] MEDS: amLODIPine 5 MG TAB PO SCH (11:23)
[2021-04-06] MEDS: MELOXICAM 7.5 MG TAB PO SCH (11:24)
[2021-04-06] MEDS: polyethylene glycoL 3350 17 GM POWD.PACK PO SCH (11:26)
[2021-04-06 11:59] VITALS: BP 134/69; TEMP 98.4
[2021-04-06 12:14] LABS: Appearance,Urine Clear (Clear); Bacteria,Urine Occasional /hpf; Bilirubin,Urine Negative (Negative); Blood,Urine Negative (Negative); Color,Urine Light Yellow; Glucose,Urine (UA) Negative (Negative); Ketones,Urine Negative (Negative); Leukocyte Esterase,Urine Small (Negative); Mucus,Urine Rare /hpf; Nitrite,Urine Negative (Negative); Protein,Urine Negative (Negative); RBC,Urine <1 /hpf (0-5); Specific Gravity,Urine 1.011 (1.001-1.035); Squamous Epithelial Cell,Urine <1 /hpf (0-4); Urobilinogen,Urine <2.0 mg/dL (<2.0); WBC,Urine 1 /hpf (0-5)
[2021-04-06 12:17] VITALS: PULSE 65
--- NOTE | 2021-04-06 12:50 | P.DS ---
Providers Date of admission: 03/31/21 14:39 Expected date of discharge: 04/06/21 Attending physician: Clint Story Consults: 03/31/21 14:39 Consult Physician Urgent Consulting Provider: Tej Child Consult Reason/Comments: medical clearance Do you want consulting provider notified?: Yes Primary care physician: Chau Mitchell MD Hospital Course: Date of admission: 03/31/2021 Date of discharge: 04/06/2021 Admission diagnosis: Displaced right bimalleolar ankle fracture Discharge diagnosis: Same Attending physician: Dr. Story Surgical procedures: Open reduction and internal fixation right bimalleolar ankle fracture Brief history: Patient is a 75-year-old female with a history of displaced right bimalleolar ankle fracture status post fall. At this point patient has failed conservative treatment measures and has opted to proceed with a elective open reduction internal fixation right bimalleolar ankle fracture. Hospital course: Details of patient's surgery can be found in operative report. Patient tolerated the procedure well and was subsequently transported to orthopedic floor. Patient's orthopeidc and medical care was provided daily. Patient had daily laboratory tests performed for evaluation of overall blood counts. Patient had daily physical therapy to include strengthening range of motion as well as education with walker ambulation. Patient was treated with Heparin for their postoperative DVT prophylaxis during their inpatient stay. Patient was noted to have a relatively uneventful postoperative course. Patient reported satisfactory pain control with oral pain medications by postoperative day 4. Patient showed satisfactory progress with physical therapy. Patient moved steadily through the program and had no difficulty meeting the goals by postoperative day 4. Given patient's otherwise satisfactory course and having met physical therapy goals, plan is to discharge patient to rehab on postoperative day 4. Discharge condition/disposition: Patient will be discharged to rehab in stable condition. Discharge medications: Instructions are given on resumption of patient's normal daily medications per primary care recommendation, in addition patient will be prescribed Colace; Flexeril; heparin; MiraLAX; [place] 10 mg/325 mg. Discharge instructions: 1. Wound care and infection precautions, keep incision dry and covered while showering, no lotions, creams, moisturizers. No soaking, tubs, pools, hottubs. Do not scrub over the incision. 2. Ice and elevate when necessary. Do not exceed 20 minutes per hour with ice pack. 3. Pain meds and anticoagulants per prescription. 4. Pain medication has potential to cause constipation. Increase oral fluid and fiber intake. Contact primary care provider if you have not had a bowel movement within 48 hours after discharge 5. No anti-inflammatory medication until discussed at first post operative visit, this including Motrin, Aleve, Mobic, Diclofenac. 6. Follow up in office at 2 weeks postop with Juarez Babcock PA-C / Guy Villegas PA-C 7. Follow up with your primary care doctor 7-10 days after discharge. 8. Contact [facility] with any questions, . Nonweightbearing on operative leg. Pain medications as prescribed. Keep splint clean, dry. Follow-up in office at 2 weeks Assessment: Displaced right bimalleolar ankle fracture Procedures: Open reduction and internal fixation right bimalleolar ankle fracture Patient Condition at Discharge: Good Plan - Discharge Summary Discharge Rx Participant: No New Discharge Prescriptions: New Docusate [Colace] 100 mg PO DAILY #30 capsule Cyclobenzaprine [Flexeril] 5 mg PO BID PRN #15 tablet PRN Reason: Muscle Spasm Heparin Sodium,Porcine [Heparin Sodium] 5,000 unit SQ Q8HR #90 each polyethylene glycoL 3350 [Miralax] 17 gm PO DAILY PRN #15 packet PRN Reason: Constipation HYDROcodone/APAP 10-325MG [[place] 10-325] 1 tab PO Q6HR PRN 3 Days #12 tab PRN Reason: Pain Discontinued HYDROcodone/APAP 10-325MG [[place] 10-325] 1 tab PO Q6H No Action rOPINIRole HCL [Requip] 1 mg PO HS Meloxicam [Mobic] 15 mg PO DAILY Metoprolol Tartrate [Lopressor] 25 mg PO DAILY Citalopram Hydrobromide [CeleXA] 20 mg PO DAILY Cranberry Fruit Extract [Cranberry] 500 mg PO HS Discharge Medication List Meloxicam [Mobic] 15 mg PO DAILY 08/14/16 [History] rOPINIRole HCL [Requip] 1 mg PO HS 08/14/16 [History] Citalopram Hydrobromide [CeleXA] 20 mg PO DAILY 07/25/20 [History] Metoprolol Tartrate [Lopressor] 25 mg PO DAILY 07/25/20 [History] Cranberry Fruit Extract [Cranberry] 500 mg PO HS 03/31/21 [History] Cyclobenzaprine [Flexeril] 5 mg PO BID PRN #15 tablet 04/05/21 [Rx] Docusate [Colace] 100 mg PO DAILY #30 capsule 04/05/21 [Rx] HYDROcodone/APAP 10-325MG [[place] 10-325] 1 tab PO Q6HR PRN 3 Days #12 tab 04/05/21 [Rx] Heparin Sodium,Porcine [Heparin Sodium] 5,000 unit SQ Q8HR #90 each 04/05/21 [Rx] polyethylene glycoL 3350 [Miralax] 17 gm PO DAILY PRN #15 packet 04/05/21 [Rx] Follow up Appointment(s)/Referral(s): Guy Villegas PAC [PHYSICIAN BUSINESS PROCESS ARCHITECT] - 2 Weeks Chau Mitchell MD [Primary Care Provider] - 1-2 days Yunior Prasad MD [STAFF PHYSICIAN] - 2 Weeks (urologist ) Activity/Diet/Wound Care/Special Instructions: Orthopedic discharge instructions: 1. Nonweightbearing right lower extremity at all times 2. Elevate the extremity often 3. Pain medication as needed 4. Heparin 5000 units every 8 hours for DVT prophylaxis 5. Plan for follow-up at [facility] 2 weeks Discharge Disposition: TRANSFER TO SNF/ECF
--- NOTE | 2021-04-06 20:37 | P.PN ---
Subjective This is a pleasant 75 years old female with past medical history of mitral valve prolapse, osteoarthritis and back surgery, presents because of fall and left ankle fracture. 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 She denies any dizziness or syncope. No chest pain or dyspnea. No abdominal pain or nausea vomiting or diarrhea. No dysuria or urinary symptoms. She has total tract of bulbous is . Today her Garzon catheter was discontinued by the primary team. Discussed with the bedside nurse to check her bladder scan. Especially postvoid residual. Also blood pressure was elevated today 172/76. She is on metoprolol 12.5 twice a day he has a home dose. Dr. Child added lisinopril/hydrochlorothiazide 10- 12.5 mg yesterday and she got a dose last night. Her blood pressure is still elevated. so Added Norvasc 5 mg daily She had low-grade temperature yesterday 99.7 most likely secondary to her fracture, no other episodes of fever. No leukocytosis. No need for antibiotic now and while keep monitoring closely. Antibiotics will have more risk and howard efits currently. 04/06/2021 Yesterday patient developed renal retention after Garzon catheter was di scontinued, it was found secondary to fecal impaction. Garzon catheter was inserted and abdomen is provided for the patient and she had good large bowel movement. After that patient felt relieved. Urine analysis is not significantly abnormal for infection. Patient denies any dysuria or urgency. No suprapubic tenderness. No fever or leukocytosis. The suspicion of infection is very low and does not need antibiotics now or on discharge. An event that she is doing well, she is fully awake and oriented. Denies chest pain or dyspnea. No abdominal pain or complaints. No vomiting. She still has cast for his right ankle fracture. Hemodynamically stable.Blood pressure improved to 134/69. She is currently On metoprolol and Norvasc plus lisinopril/hydrochlorothiazide And patient looks medically stable today Orthopedic team are planning for discharge patient today Objective - Vital Signs Vital signs: Vital Signs Temp 98.4 F 04/06/21 11:15 Pulse 67 04/06/21 11:15 Resp 16 04/06/21 11:15 BP 134/69 04/06/21 11:15 Pulse Ox 94 L 04/06/21 11:15 Intake & Output 04/05/21 04/06/21 04/06/21 18:59 06:59 18:59 Intake Total 480 Output Total 852 300 950 Balance -372 -300 -950 Weight 90.718 kg Intake: Oral 480 Output: Urine 500 300 950 Uretheral (Garzon) 500 Post Void Residual 352 Other: Voiding Method Indwelling Catheter Indwelling Catheter # Bowel Movements 1 - Exam GENERAL: The patient is alert and oriented x3, not in any acute distress. Well developed, well nourished. HEENT: Pupils are round and equally reacting to light. EOMI. No scleral icterus. No conjunctival pallor. Normocephalic, atraumatic. No pharyngeal erythema. No thyromegaly. CARDIOVASCULAR: S1 and S2 present. No murmurs, rubs, or gallops. PULMONARY: Chest is clear to auscultation, no wheezing or crackles. -ABDOMEN: Soft, nontender, nondistended, normoactive bowel sounds. No palpable organomegaly. Garzon catheter is in place MUSCULOSKELETAL: No joint swelling or deformity. -EXTREMITIES: No cyanosis, clubbing, or pedal edema. Right ankle is in cast and dressing, rest of exam deferred to surgery primary team NEUROLOGICAL: Gross neurological examination did not reveal any focal deficits. SKIN: No rashes. no petechiae. - Labs CBC & Chem 7: 04/05/21 05:18 04/01/21 06:52 Labs: Abnormal Lab Results - Last 24 Hours (Table) 03/06/21 Range/Units 10:30 Ur Leukocyte Esterase Small H (Negative) Urine Bacteria Occasional H (None) /hpf Urine Mucus Rare H (None) /hpf Assessment and Plan Assessment: A fall down stairs without losing consciousness during leaving her DrSangita office appointment Right ankle fracture status post ORIF on 04/02 Uncontrolled hypertension, currently is better controlled Urine retention secondary to fecal impaction status post Garzon catheter placement Fecal impaction, improved with enema History of osteoarthritis Plan: This is a pleasant 75 years old female who presents with fall and right ankle fracture status post ORIF Continue with Norvasc ,metoprolol, lisinopril/hydrochlorothiazide and keep monitor and blood pressure closely Continue with postop management including pain management and DVT prophylaxis as per orthopedic primary team No need for antibiotics and keep monitoring if she develops more fever or leukocytosis Continue with Garzon catheter follow-up as an outpatient with urologist, contact information for Dr. Holley is provided for the patient and she is aware with this recommendation Recommend patient to follow-up with her PCP in one week after discharge, patient informed and she agrees stating that she has Dr. Mitchell of visiting physician Today patient is medically stable for discharge Labs and medication were reviewed.. Continue same treatment. Continue with symptomatic treatment. Resume home medication. Monitor lytes and vitals. DVT and GI prophylaxis. Further recommendations as per clinical course of the patient PT/OT: Patient may from rehab, Thank you for consulting us
== END 2021-04-06 16:02 | DRG 494 ==
LOC: EC 12:58 → 5NMEDONC 14:39
PROVIDERS: ADMIT Orthopaedic Surgery; ATTEND Orthopaedic Surgery
PROC: 0QSJ04Z Reposition Right Fibula with Internal Fixation Device, Open Approach (ICD-10-PCS; principal; 2021-03-31)
PROC: 0QSG04Z Reposition Right Tibia with Internal Fixation Device, Open Approach (ICD-10-PCS; 2021-03-31)
DX: S82.841A Displaced bimalleolar fracture of right lower leg, initial encounter for closed fracture (principal); W10.9XXA Fall (on) (from) unspecified stairs and steps, initial encounter; E66.9 Obesity, unspecified; G25.81 Restless legs syndrome; I34.1 Nonrheumatic mitral (valve) prolapse; K56.41 Fecal impaction; M15.9 Polyosteoarthritis, unspecified; N39.3 Stress incontinence (female) (male); Z96.652 Presence of left artificial knee joint; K59.09 Other constipation; Y92.009 Unspecified place in unspecified non-institutional (private) residence as the place of occurrence of the external cause; Z68.33 Body mass index [BMI] 33.0-33.9, adult; Z79.1 Long term (current) use of non-steroidal anti-inflammatories (NSAID); Z79.899 Other long term (current) drug therapy; Z98.1 Arthrodesis status; Z90.710 Acquired absence of both cervix and uterus; Z82.5 Family history of asthma and other chronic lower respiratory diseases; Z82.49 Family history of ischemic heart disease and other diseases of the circulatory system; Z82.61 Family history of arthritis
CPT/HCPCS: 36415; 71046; 80048; 80053; 81001; 85025; 87635; 93005; 96374; 99284